=== PATIENT | female | born 1955 | race Caucasian/White ===

== ENCOUNTER 2017-07-14 06:06 | Inpatient (IN) | payer OTHER ==
--- NOTE | 2017-07-01 20:03 | HP ---
CONTINUATION ADDENDUM NOW INCLUDED ON THIS REPORT HISTORY AND PHYSICAL: DATE OF ADMISSION: 07/14/17 ATTENDING PROVIDER: Nathan Clinton MD * (DICTATED BY DENNISE ALVARADO) HISTORY OF PRESENT ILLNESS: Ms. Rosas is a 61-year-old female who has been seen previously for bilateral knee osteoarthritis. She has dealt with pain bilaterally in her knees for quite some time now. She has failed conservative measures, NSAIDs, physical therapy, and cortisone injections. She has been doing prehab in order to get herself ready for this knee replacement. PAST MEDICAL HISTORY: 1. Hypertension. 2. Diabetes. 3. Hypothyroidism. 4. Depression. PAST SURGICAL HISTORY: 1. Gallbladder removal in 1975. 2. Total hysterectomy. 3. Gastric bypass, 2004. 4. Total thyroidectomy, 2011. No known anesthesia problems during any of these. CURRENT MEDICATIONS: 1. Amlodipine 5 mg. 2. Bystolic 5 mg. 3. Paroxetine 30 mg. 4. Losartan and hydrochlorothiazide 180/25. 5. Levothyroxine 100 mcg. 6. Furosemide 40 mg. 7. Metformin 24-hour extended release 500 mg. 8. Atorvastatin 20 mg. 9. Minocycline 100 mg. 10. Multivitamin. 11. Zolpidem 10 mg. ALLERGIES: CODEINE causes upset stomach. SOCIAL HISTORY: The patient lives with her spouse. She does not smoke. She drinks alcohol 3 times a week, two 8-ounce glasses of wine. She denies any illicit drug use. REVIEW OF SYSTEMS: General: The patient denies fevers, chills, or night sweats. No known anesthesia problems. HEENT: The patient denies headaches, lightheadedness, or syncopal episodes. Cardiothoracic: Denies chest pain, heart palpitations, or edema. Denies any shortness of breath with exertion. Chronic cough, or COPD. GI: Denies any nausea, vomiting, constipation, or diarrhea. : Denies any nocturia, urinary frequency, or urgency. MSK: Admits to bilateral knee pain. Denies any neck pain or chronic low back pain. Neuro: Denies any paresthesias or numbness. Integumentary: Denies any abrasions, lesions, rashes, lumps, or open sores. PHYSICAL EXAMINATION GENERAL: The patient is alert and oriented x3 with appropriate mood and affect , appropriate dress and hygiene. The patient has resting or essential tremor at rest. HEENT: Normocephalic, atraumatic. Hearing and vision grossly intact. PULMONARY: Lungs are clear to auscultation bilaterally. No wheezes, rales, or rhonchi. CARDIO: Regular rate and rhythm. Normal S1 and S2. No appreciable S3 or S4. No murmurs, rubs, or gallops. MUSCULOSKELETAL: Left lower extremity, inspection of the left knee reveals no erythema, no ecchymosis. Skin is warm, dry, and intact. Extension to 0, flexion to 110. She has tenderness on the medial joint line. No tenderness on the lateral joint line. MCL and LCL are stable. Calf is soft and nontender. Negative anterior and posterior drawer test. Negative Osmany's. She is neurovascularly intact with a 2+ dorsalis pedis pulse. DIAGNOSTIC STUDIES: Imaging: X-rays acquired on 03/02/17 of the right CONTINUATION ADDENDUM: IMAGING: X-rays obtained on 03/02/17 were reviewed. Bilateral knees show severe osteoarthritic changes as evidenced by joint space narrowing and osteophyte formation in all compartments. ASSESSMENT: Left knee osteoarthritis. PLAN: The patient has elected for a left total knee replacement, which will be done on 07/14/[address] Nathan Clinton. The risks, benefits, and complications of surgery were reviewed with the patient. She understood these and signed her understanding of the surgical risks and complications. We spoke at length about recovery time and about the surgery in general and what it entail. She will follow up with preadmission testing today at 1 o'clock and she will follow up with her primary care provider on Thursday for further presurgical clearance. She will return to the office in 10 to 14 days postop for suture removal and reassessment. A prescription for oxycodone 5 mg will be prescribed to the pharmacy today along with a prescription for Zofran in order to counteract the upset stomach, the nausea that she should feel from codeine. DENNISE ALVARADO [id number]/[facility] #: [id number]/[facility] #: [id number] JOSE
--- NOTE | 2017-07-01 20:28 | HP ---
HISTORY AND PHYSICAL: ADDENDUM: IMAGING: X-rays obtained on 03/02/17 were reviewed. Bilateral knees show severe osteoarthritic changes as evidenced by joint space narrowing and osteophyte formation in all compartments. ASSESSMENT: Left knee osteoarthritis. PLAN: The patient has elected for a left total knee replacement, which will be done on 07/14/[address] Nathan Clinton. The risks, benefits, and complications of surgery were reviewed with the patient. She understood these and signed her understanding of the surgical risks and complications. We spoke at length about recovery time and about the surgery in general and what it entail. She will follow up with preadmission testing today at 1 o'clock and she will follow up with her primary care provider on Thursday for further presurgical clearance. She will return to the office in 10 to 14 days postop for suture removal and reassessment. A prescription for oxycodone 5 mg will be prescribed to the pharmacy today along with a prescription for Zofran in order to counteract the upset stomach, the nausea that she should feel from codeine. DENNISE ALVARADO [id number]/[facility] #: [id number] [facility]USD[facility]
[~2017-07-14 06:06] MED LIST: Buffered Lidocaine 0.9% SYRIN* 5 ML/SYR SYRINGE INTRADERM ONE; Famotidine IV* 10 MG/ML 2 ML (20 mg) IV ONE; Metoclopramide IV* 5 MG/ML 2 ML VIAL IV SLOW PU ONE; Sodium Citrate/Citric Acid* 15 ML UDC PO ONE
[2017-07-14] MEDS ORDERED: Famotidine IV* 10 MG/ML 2 ML (20 mg) ONE (06:10)
[2017-07-14] MEDS ORDERED: Metoclopramide IV* 5 MG/ML 2 ML VIAL ONE (06:10)
[2017-07-14] MEDS ORDERED: ceFAZolin 1 GM in Dextrose (*) 2 GM/100 ML BAG IVPB ONE (06:11)
[2017-07-14] MEDS ORDERED: Sodium Citrate/Citric Acid* 15 ML UDC ONE (06:11)
[2017-07-14] MEDS ORDERED: Lidocaine 2% PF * 5 ML VIAL ONE (06:57)
[2017-07-14] MEDS ORDERED: Midazolam* 1 MG/ML 2 ML VIAL (2 MG) ONE ×4 (06:57→10:20)
[2017-07-14] MEDS ORDERED: Propofol* 500 MG/50 ML BTL ONE ×3 (06:57→09:31)
[2017-07-14] MEDS ORDERED: Bupivacaine 0.5% SDV PF* 10-30ML VIAL ONE ×2 (06:57→07:23)
[2017-07-14] MEDS ORDERED: fentaNYL* 50 MCG/ML 2 ML VIAL (100 MCG VIAL) ONE (06:57)
[2017-07-14] MEDS ORDERED: Sterile Water for Inj* 10 ML ONE (08:15)
[2017-07-14] MEDS ORDERED: EPHEDrine (Pressors)* 50 MG/ML VIAL ONE (08:15)
[2017-07-14] MEDS ORDERED: Lidocaine 1% MPF wEPI 200,000* 30 ML SDV ONE (08:33)
[2017-07-14] MEDS ORDERED: EPHEDrine (Pressors)* 50 MG/ML VIAL IV PUSH PRN (09:07)
[2017-07-14] MEDS ORDERED: PROCHLORPERAZINE INJ 5 MG/ML 2 ML VIAL IV PRN (09:07)
[2017-07-14] MEDS ORDERED: diPHENhydraMINE IV* 50 MG/ML 1 ml VIAL (BENADRYL) IV PRN ×2 (09:07→09:10)
[2017-07-14] MEDS ORDERED: Ondansetron INJ* 2 MG/ML VIAL IV PRN ×2 (09:07→09:10)
[2017-07-14] MEDS ORDERED: oxyCODONE TAB* 5 MG TAB PO PRN ×2 (09:07→09:10)
[2017-07-14] MEDS ORDERED: Acetaminophen TAB* 325 MG PO PRN ×2 (09:07→09:10)
[2017-07-14] MEDS ORDERED: Naloxone* 0.4 MG/ML 1 ML VIAL IV PRN ×2 (09:07→09:10)
[2017-07-14] MEDS ORDERED: Nalbuphine* 20 MG/ML 1 ML VIAL IV PRN (09:10)
[2017-07-14] MEDS ORDERED: oxyCODONE/Acetamin 5/325 MG* TAB PO PRN (09:10)
[2017-07-14] MEDS ORDERED: fentaNYL* 50 MCG/ML 2 ML VIAL (100 MCG VIAL) IV PRN (09:10)
[2017-07-14] MEDS ORDERED: HYDROmorphone INJ* 1 MG/ML CARPUJECT SYRINGE IV PRN (09:10)
[2017-07-14] MEDS ORDERED: Scopolamine 1.5 mg* PATCH TRANSDERM SCH (10:00)
[2017-07-14] MEDS ORDERED: OBEPIDURAL* 250 ML EPIDURAL SCH (10:00)
[2017-07-14] MEDS ORDERED: Ketorolac INJ* 30 MG/ML 1 ML VIAL ONE (10:27)
[2017-07-14] MEDS ORDERED: Magnesium Hydroxide LIQ* 30 ML UDC PO PRN (11:04)
--- NOTE | 2017-07-14 12:23 | RAD ---
INDICATION: Status post total left knee replacement surgery. COMPARISON: Comparison is made with a prior x-ray study from November 29, 2014. TECHNIQUE: 2 views of the left knee were obtained. FINDINGS: The patient is status post total left knee replacement surgery. The bones and prostheses are in normal alignment. There are 2 surgical drains anterior to the distal femur. IMPRESSION: STATUS POST TOTAL LEFT KNEE REPLACEMENT SURGERY.
[2017-07-14] MEDS: ceFAZolin 1 GM in Dextrose (*) 1 GM/50 ML BAG IVPB SCH ×2 (16:04→23:44)
[2017-07-14] MEDS ORDERED: Dextrose 50% Syringe 50 ML* 25 GM/50 ML SYRINGE IV PUSH PRN (18:37)
--- NOTE | 2017-07-14 18:57 | OP ---
CC: Dr. Jaqueline Claire [place] * DATE OF OPERATION: 07/14/17 - ROOM #350 DATE OF : 55 - AGE: 61. SURGICAL CARE: Left knee. SURGEON: Nathan Clinton MD TISSUE SPECIALIST: DENNISE Caputo BERRY PICKER MACHINE OPERATOR: Alisa Link, hand frame surgical elastic knitter. ANESTHESIOLOGIST: Mily Tucker MD ANESTHESIA: Spinal and epidural IV sedation. PRE-OP DIAGNOSIS: Severe arthritis of the left knee with some varus malalignment. POST-OP DIAGNOSIS: Severe arthritis of the left knee with some varus malalignment. OPERATIVE PROCEDURE: Left total knee replacement. COMPONENTS UTILIZED: The Johny Persona Knee, the femur was a size 7, the patella size 35, the articular surface is size 10, and the tibia a size E. ESTIMATED BLOOD LOSS: 250 mL. FLUIDS: Replacement 2200 cc of crystalloid fluids. COMPLICATIONS: There were no complications. DRAINS: Two drains, left knee at the end of the case. CONDITION: Stable to the recovery room. OPERATIVE INDICATION: Severe arthritis of the left knee. It has been no longer responsive to nonoperative care and the patient wanted to proceed with a knee replacement and we recommended it. DESCRIPTION OF PROCEDURE: The patient was brought to the operating room and placed on the operating room table in a supine position. The spinal epidural was administered in the sitting position. She was then returned to the supine position. A Brandt catheter was inserted. The left proximal thigh was wrapped with a tourniquet. The left dorsalis pedis pulse was noted to be 2+ and the left leg was given a preliminary chlorhexidine prep and then a final ChloraPrep from the tourniquet to the tips of the toes. After prepping, draping, and carefully sealing off, we did our universal protocol time-out confirming Felix Rosas and a plan for left total knee replacement. We all agreed and we proceeded. The knee surgery was done with the knee acutely flexed and the left foot held on a padded foot piece and the tourniquet was not utilized until the clean up and cementing phase of the case. The skin incision went from two fingerbreadths proximal to the superior pole of the patella to the medial aspect of the tibial tubercle. Skin and subcutaneous tissues divided down to the deep fascia. The quad tendon of the vastus medialis identified and the knee was then entered medial parapatellar, dividing the quad tendon at the junction of the rectus femoris and vastus medialis tendon staying as close to vastus medialis muscle as possible, I am going 3 to 4 cm proximal to the superior pole of the patella. The knee had clear goldish synovial fluid. There was synovitis. The patella was made so that could be everted. The anteromedial soft tissues on the tibia were divided down to the bone along the tibial tubercle and then going medially, we elevated subperiosteally going around to the deep MCL and into the posteromedial corner of the knee. The remains of the medial meniscus were removed anteriorly and the MCL was carefully preserved throughout the case. The large osteophytes were present on the medial femoral condyle, medial tibial plateau, intercondylar notch of the patella. These were carefully removed. The intercondylar notch was cleaned and then the ACL and PCL were uplifted from their femoral origins. The tibia was made so it could be subluxated forward from under the femur and the PCL was carefully excised, keeping careful hemostasis posteriorly and working carefully there. The lateral meniscus was carefully excised. The distal anterior femur was exposed subperiosteally for referencing and measuring and peripatellar synovectomy was completed including the infrapatellar fat pad. Once these preparations were completed, then the proximal tibial cut was made first, our goal here was to have a tibial surface that would be perpendicular to the long axis of the tibia, removing a few millimeters from the medial side and and about a centimeter from the lateral side. After this cut was completed, then the femoral intramedullary canal was opened with a drill. The femoral canal was suctioned to discourage embolization. The distal femoral cutting guide was applied on #1 with 6 degrees of valgus and the distal femoral cut was completed. The extension gap was very satisfactory with a 10-mm block. The femur was then measured for a size 7 and the anterior, posterior, and chamfering cuts were completed for the size 7. We then finished removal of the medial meniscus, posterior medial femoral condyle where the were osteophytes same on the lateral femoral condyle, finished removal of the PCL in the lateral meniscus as well with careful hemostasis once again. At this stage, we had nice ligamentous balance in 90 degrees of flexion with a 10-mm block. The femur was completed with the intercondylar cutout. The tibia was then completed for a size E. The femoral canal was then cleaned x6 with pulse saline and suctioned empty and a bone plug was inserted. The knee was then assembled with trial components and positioned. The E tibia 10 articular surface and the size 7 femur with full knee extension, satisfactory alignment on extension, stable ligaments on extension, and stable ligaments in 90 degrees of flexion. The patella was cut flat, some extra cartilage was removed from the lateral facet, a 35 was chosen, three drill holes were made and these were undercut. A lateral release was not necessary. The knee was put through range of movement several times with a trial components in place from extension 0 degrees to flexion 125 degrees. The leg was exsanguinated. The tourniquet was elevated to 300. The knee was then cleaned and extension with pulsed saline irrigation several liters. The knee was then cleaned and flexed and was retractors in place. All bony surfaces were clean and then all bony surfaces were dry. The cement was mixed and the components were cemented into position, patella followed by tibia followed by femur. Each component was impacted, excess cement was removed, and the knee was articulated and extended during the final hardening. After hardening of the cement, we checked posteriorly for retained cement fragments. Tourniquet was deflated. Hemostasis checked and achieved utilizing electrocautery during closure. We infiltrated the pericapsular tissues with a mixture of Marcaine 0.5% without epinephrine and Xylocaine 1% with epinephrine 30 mL and then later in the closure we used another 15 mL in the joint and another 15 mL in the soft tissues from medially around the knee. The drains were brought out of the superolateral suprapatellar pouch. The closure was done on the quad tendon with interrupted #1 Vicryl sutures in [id number] fashion down to the medial retinaculum and distal to that we used 0 Vicryl and then on the deep fascia of bursa, we used 0 Vicryl and on the superficial subcu , we used 3-0 Vicryl non-dyed. The knee was flexed and extended several times during the closure. It was showing full extension and flexion to 130 degrees multiple times. Skin was closed with luis a and then washed and dried and covered with Betadine soaked release. The drains were dressed the same way and then sterile Webril followed by the cryotherapy cuff, ABD pads, and a loosely applied 6-inch Ronald bandage. The dorsalis pedis pulse was 2+ at the end of the case and the patient was returned to the recovery room in stable and satisfactory condition, having tolerated the procedure very well. [id number]/[facility] #: [id number] MTDD
[2017-07-14] MEDS: Docusate CAP* 100 MG PO SCH (20:47)
[2017-07-14] MEDS: Atorvastatin* 20 MG TAB PO SCH (20:47)
[2017-07-14] MEDS: oxyCODONE/Acetamin 5/325 MG* TAB PO PRN ×2 (20:48→23:54)
--- NOTE | 2017-07-14 21:18 | CONS ---
CC: Dr. Jaqueline Claire; Dr. Nathan Clinton * CONSULTATION REPORT: DATE OF CONSULT: 07/14/17 PRIMARY CARE PROVIDER: Dr. Jaqueline Claire. PHYSICIAN REQUESTING CONSULTATION: Dr. Nathan Clinton. ATTENDING PHYSICIAN: Dr. Brendon Hayden (dictated by Harleen Oliver NP) REASON FOR CONSULTATION: Co-medical management in a patient with a history of hypertension, diabetes mellitus, depression, hypothyroidism and sleep apnea. HISTORY OF PRESENT ILLNESS: Ms. Rosas is a 61-year-old female with a past medical history significant for hypertension, diabetes mellitus, hypothyroidism secondary to total thyroidectomy, depression, hyperlipidemia, sleep apnea who presented to the hospital today for an elective left total knee arthroplasty with Dr. Clinton. The patient states that leading up to her surgery, she has been in her usual state of health. She denies any recent fever, chills, chest pain, shortness of breath, nausea vomiting, diarrhea, or urinary symptoms. Postoperatively, the patient states that her pain is well controlled. Hospitalists were asked to assist with co-medical management of this patient during her hospitalization. PAST MEDICAL HISTORY: 1. Hypertension. 2. Diabetes mellitus. 3. Hypothyroidism. 4. Depression. 5. Hyperlipidemia. 6. Thyroid carcinoma, status post thyroidectomy and radiation. 7. Sleep apnea with CPAP. PAST SURGICAL HISTORY: 1. Status post cholecystectomy. 2. Status post total hysterectomy. 2. Status post Mario-en-Y gastric bypass. 3. Status post total thyroidectomy. HOME MEDICATIONS: Include: 1. Amlodipine 5 mg oral daily. 2. Bystolic 5 mg oral daily. 3. Paroxetine 30 mg oral daily. 4. Losartan/hydrochlorothiazide 100/25 one tablet oral daily. 5. Levothyroxine 100 mcg oral daily. 6. Furosemide 40 mg oral daily. 7. Metformin ER 1000 mg oral daily. 8. Atorvastatin 20 mg oral daily. 9. Minocycline 100 mg oral daily. 10. Multivitamin 1 tablet oral daily. 11. Ambien 10 mg oral daily at bedtime as needed for insomnia. 12. CoQ10 200 mg oral daily. 13. Vitamin B12 1000 mcg oral daily. 14. Albuterol 180 mcg 2 puffs inhalation every 4 to 6 hours as needed for shortness of breath or wheeze. ALLERGIES: CODEINE causes upset stomach. FAMILY HISTORY: The patient's father had a history of diabetes mellitus and cerebrovascular accident. The patient's mother has a history of diabetes mellitus, Alzheimer's disease and COPD. She denies any family history of cancer or heart disease. SOCIAL HISTORY: The patient denies tobacco use. She drinks alcohol approximately 3 times a week drinking two 8-ounce glasses of wine in a sitting. She lives with her . Her , Dominic Rosas, will be her surrogate decision maker in the event she is unable to make decisions for herself. REVIEW OF SYSTEMS: I performed an 11-point review of systems. All the pertinent positives and negatives are mentioned in the history of present illness. The remaining review of systems are negative. PHYSICAL EXAMINATION: Vital Signs: Temperature 98.0, heart rate 64, respiratory rate 16, O2 sat 100% on 2 L via nasal cannula, blood pressure 135/ 67. General Appearance: The patient is alert, pleasant, appears to be in no acute distress. HEENT: Normocephalic, atraumatic. Pupils are equal and reactive to light. Extraocular movements are intact. Respiratory: There is no accessory muscle use. Lungs are clear to auscultation bilaterally. Cardiovascular: Regular rate and rhythm. S1 and S2 are present and crisp. There are no murmurs, rubs or gallops heard. Abdomen: Soft, nontender, nondistended. There are bowel sounds present x4. Extremities: There is no lower extremity edema. DP and PT pulses are 2+ and symmetric. Musculoskeletal : There is no clubbing or cyanosis noted. The patient exhibits good strength in all extremities. Neurological: Cranial nerves II through XII are grossly intact. The patient moves all extremities. Psychological: The patient is calm and cooperative. Skin: The patient has a dressing to her left knee that is clean, dry and intact. DIAGNOSTIC STUDIES/LABORATORY DATA: Preop labs from 07/01/17: Sodium 141, potassium 3.9, chloride 102, CO2 31, BUN 12, creatinine 0.64. Glucose 124, white blood cell count 9.5, hemoglobin 12.2, hematocrit 36, platelet count 334. Urinalysis negative. IMPRESSION: Mr. Rosas is a 61-year-old female with past medical history significant for hypertension, diabetes mellitus, hypothyroidism, depression, hyperlipidemia and sleep apnea, who presented to the hospital today for an elective left total knee arthroplasty with Dr. Clinton. Hospitalists have been asked to assist with co-medical management of this patient during her hospitalization. ASSESSMENT: 1. Status post left total knee arthroplasty. Postop day, management will be per Orthopedic Surgery. The patient will have physical therapy and occupational therapy. We will trend her H and Hs, recheck a BMP in the morning. She will have urinary catheter in place through postop day 1. She will be placed on a bowel regime and pain management regimen. 2. Hypertension. We will continue the patient's Bystolic and amlodipine for now due to her having an epidural. I am going to hold her losartan/ hydrochlorothiazide and furosemide and resume accordingly as the blood pressures allow. 3. Diabetes mellitus. Hold the patient's home metformin. We will get glucose checks a.c. and h.s. and place her on lispro sliding scale. 4. Depression. Continue the patient's home paroxetine. 5. Hypothyroidism. The patient is status post a total thyroidectomy secondary to thyroid carcinoma. She will be continued on her home levothyroxine. 6. Hyperlipidemia. The patient will be continued on her home atorvastatin. 7. Fluids, electrolytes, and nutrition. The patient will be on a consistent carbohydrate diet after she is tolerating clear liquids. 8. DVT prophylaxis. The patient will be on full dose aspirin per Orthopedic Surgery. 9. Code status. Full code. 10. Disposition. Inpatient with disposition per Orthopedic Surgery. TIME SPENT: Time for this consultation was approximately 45 minutes, greater than half of that was spent with the patient discussing medications, past medical history, the events leading up to her arrival today, performing a physical examination. Reviewed by YASMANI GONZALEZ 07/15/17 1647 [id number]/[facility] #: [id number] JOSE
[2017-07-14] MEDS: Magnesium Hydroxide LIQ* 30 ML UDC PO SCH (22:03)
[2017-07-15] MEDS: oxyCODONE/Acetamin 5/325 MG* TAB PO PRN ×6 (02:48→22:14)
[2017-07-15] MEDS: Levothyroxine TAB* 100 MCG TAB PO SCH (05:33)
[2017-07-15 05:35] LABS: Hematocrit 28 % (35-47); Hemoglobin 9.6 g/dl (12.0-16.0); Mean Platelet Volume 9 um3 (7.4-10.4); Platelet Count 263 10^3/ul (150-450)
[2017-07-15 05:47] LABS: EGFR Non-African American 110.1 (>60)
--- NOTE | 2017-07-15 07:13 | PN ---
Progress Note - Progress Note Date of Service: 07/15/17 Note: POD #1 99.4, H/H 9.6/28%, Lytes OK, Post OP X-ray left knee all OK. Awake, alert, cooperative and breathing easily. Pain has been controlled with the epidural. Left knee dressing is dry. Exercises done for straight leg lift , hip IR and ER. The left DP pulse is 2 plus and foot is warm and without swelling. Imp: Stable. Acute blood loss anemia. Plans: Up with walker, drinking and incentive spirometry.
[2017-07-15] MEDS: Insulin LISPRO* 1 UNITS UNIT SUBCUT SCH ×3 (08:26→17:43)
[2017-07-15] MEDS: ceFAZolin 1 GM in Dextrose (*) 1 GM/50 ML BAG IVPB SCH (08:29)
[2017-07-15] MEDS ORDERED: Losartan TAB* 25 MG PO SCH (09:00)
[2017-07-15] MEDS ORDERED: Furosemide TAB* 40 MG PO SCH (09:00)
[2017-07-15] MEDS ORDERED: Hydrochlorothiazide TAB* 25 MG PO SCH (09:00)
[2017-07-15] MEDS: PARoxetine HCL TAB* 10 MG PO SCH (10:25)
[2017-07-15] MEDS: amLODIPine TAB* 5 MG PO SCH (10:27)
[2017-07-15] MEDS: CMCS Nebivolol TAB (NF) 2.5 MG TAB PO SCH (10:27)
[2017-07-15] MEDS: Docusate CAP* 100 MG PO SCH ×2 (10:28→21:38)
[2017-07-15] MEDS: Magnesium Hydroxide LIQ* 30 ML UDC PO SCH ×2 (10:29→21:38)
[2017-07-15] MEDS: MINOCYCLINE 50 MG PO SCH (10:29)
[2017-07-15] MEDS: Aspirin TAB* 325 MG PO SCH (10:29)
--- NOTE | 2017-07-15 11:14 | PN ---
Progress Note - Progress Note Date of Service: 07/15/17 SOAP: Subjective: []Patient seen at bedside POD 1 sp LTK. She feels well, denies excessive LLE pain. No dizziness, CP, SOB, nausea. Objective: [] Vital Signs Temp 98.7 F 07/15/17 09:18 Pulse 68 07/15/17 09:18 Resp 18 07/15/17 09:32 BP 135/63 07/15/17 09:18 Pulse Ox 100 07/15/17 09:18 Intake & Output 07/14/17 07/15/17 07/15/17 18:59 06:59 18:59 Intake Total 3819 2449 Output Total 1780 1670 Balance 2039 779 Intake: IV Fluids 2303 729 ABX - CEFAZOLIN 55 LR 2300 674 Obepidural 3 IVPB 386 ABX - CEFAZOLIN 57 LR 329 Oral 1130 1720 Output: Hemovac Amount #1 350 570 Brandt 1400 1100 Residual 30 Brandt 16 Fr 30 Other: # Bowel Movements 0 Laboratory Last Values Hgb 9.6 g/dl (12.0-16.0) L 07/15/17 05:13 Hct 28 % (35-47) L 07/15/17 05:13 Plt Count 263 10^3/ul (150-450) 07/15/17 05:13 MPV 9 um3 (7.4-10.4) 07/15/17 05:13 Sodium 136 mmol/L (133-145) 07/15/17 05:13 Potassium 3.7 mmol/L (3.5-5.0) 07/15/17 05:13 Chloride 102 mmol/L (101-111) 07/15/17 05:13 Carbon Dioxide 26 mmol/L (22-32) 07/15/17 05:13 Anion Gap 8 mmol/L (2-11) 07/15/17 05:13 BUN 8 mg/dL (6-24) 07/15/17 05:13 Creatinine 0.56 mg/dL (0.51-0.95) 07/15/17 05:13 Est GFR ( Amer) 141.5 (>60) 07/15/17 05:13 Est GFR (Non-Af Amer) 110.1 (>60) 07/15/17 05:13 BUN/Creatinine Ratio 14.3 (8-20) 07/15/17 05:13 Glucose 205 mg/dL (70-100) H 07/15/17 05:13 POC Glucose (mg/dL) 149 mg/dL (70-100) H 07/15/17 07:56 Calcium 8.4 mg/dL (8.6-10.3) L 07/15/17 05:13 General: Well appearing, NAD LLE: Drains pulled without complication and with tips intact, tolerated well by patient. DF/PF intact. Calf supple and nontender without erythema, edema or palpable cords Assessment: []POD 1 sp left total knee replacement Plan: []WBAT PT/OT ASA 325 mg QD DC tomorrow if progressing well
[2017-07-15] MEDS: Morphine INJ* 4 MG/ML 1 ML CARPUJECT IV PRN (12:22)
[2017-07-15] MEDS: Atorvastatin* 20 MG TAB PO SCH (17:44)
--- NOTE | 2017-07-15 18:28 | PN ---
Objective Active Medications: Amlodipine Besylate (Norvasc Tab*) 5 mg PO QAM [facility] Last Admin: 07/15/17 10:27 Dose: 5 mg Aspirin (Aspirin Tab*) 325 mg PO DAILY [facility] Last Admin: 07/15/17 10:29 Dose: 325 mg Atorvastatin Calcium (Lipitor*) 20 mg PO QPM [facility] Last Admin: 07/15/17 17:44 Dose: 20 mg Dextrose (D50w Syringe 50 Ml*) 12.5 gm IV PUSH .FOR FS < 60 - SS PRN PRN Reason: FS < 60 Docusate Sodium (Colace Cap*) 100 mg PO BID [facility] Last Admin: 07/15/17 10:28 Dose: 100 mg Lactated Ringer's (Lactated Ringers 1000 Ml Bag*) 1,000 mls @ 100 mls/hr IV PER RATE [facility] Last Admin: 07/15/17 00:14 Dose: 100 mls/hr Insulin Human Lispro (Humalog*) 0 - 10 units SUBCUT AC [facility] PRN Reason: Protocol Last Admin: 07/15/17 17:43 Dose: 2 unit Levothyroxine Sodium (Synthroid Tab*) 100 mcg PO 0600 [facility] Last Admin: 07/15/17 05:33 Dose: 100 mcg Magnesium Hydroxide (Milk Of Magnesia Liq*) 30 ml PO BID [facility] Last Admin: 07/15/17 10:29 Dose: 30 ml Magnesium Hydroxide (Milk Of Magnesia Liq*) 30 ml PO Q6H PRN PRN Reason: constipation Minocycline [facility] ([facility] (Nf)) [facility] [place] Last Admin: 07/15/17 10:29 Dose: 100 mg Morphine Sulfate (Morphine Inj (Syringe)*) 4 mg IV Q2H PRN PRN Reason: PAIN - BREAKTHROUGH Last Admin: 07/15/17 12:22 Dose: 4 mg Nebivolol (Bystolic Tab (Nf)) [facility] [place] Last Admin: 07/15/17 10:27 Dose: 5 mg Oxycodone/Acetaminophen (Percocet 5/325 Tab*) 2 tab PO Q4H PRN PRN Reason: PAIN Last Admin: 07/15/17 17:52 Dose: 2 tab Paroxetine HCl (Paxil Tab*) [facility] [place] Last Admin: 07/15/17 10:25 Dose: 30 mg Pharmacy Profile Note (Scopolamine Patch Remove*) 1 note PATCH OFF .AFTER 72 HOURS ONE Stop: 07/17/17 09:09 Scopolamine (Transderm-Scop 1.5 Mg Patch*) 1 patch TRANSDERM Q72H ERIK Last Admin: 07/14/17 13:24 Dose: Not Given Vital Signs - 8 hr 07/15/17 07/15/17 07/15/17 11:34 12:22 12:26 Temperature 100.1 F Pulse Rate 72 Respiratory 16 16 Rate Blood Pressure 145/58 (mmHg) O2 Sat by Pulse Oximetry 07/15/17 07/15/17 07/15/17 13:34 13:37 15:31 Temperature 98.7 F Pulse Rate 81 Respiratory 16 16 21 Rate Blood Pressure 149/52 (mmHg) O2 Sat by Pulse 91 Oximetry 07/15/17 07/15/17 17:26 17:52 Temperature Pulse Rate Respiratory 16 16 Rate Blood Pressure (mmHg) O2 Sat by Pulse Oximetry Oxygen Devices in Use Now: Nasal Cannula Result Diagrams: 07/15/17 05:13 07/15/17 05:13 Assess/Plan/Problems-Billing Assessment: - Patient Problems (1) Osteoarthritis of left knee Code(s): M17.12 - UNILATERAL PRIMARY OSTEOARTHRITIS, LEFT KNEE SNOMED Code(s) : 281280038383204 Comment: - POD1 LTKA - POC as per ortho, OOB with PT/OT, pain control, bowel regimen - DVT prophy with full dose ASA - H&H stable (2) Hypertension Code(s): I10 - ESSENTIAL (PRIMARY) HYPERTENSION SNOMED Code(s): 62409662 Comment: - Post op BP stable on home regimen, will continue. (3) Depression Code(s): F32.9 - MAJOR DEPRESSIVE DISORDER, SINGLE EPISODE, UNSPECIFIED SNOMED Code(s): 40699571 Comment: - continue SSRI (4) Diabetes Code(s): E11.9 - TYPE 2 DIABETES MELLITUS WITHOUT COMPLICATIONS SNOMED Code(s) : 78599116 Comment: - Lispro SS insulin coverage, sugars improving today (5) Hypothyroid Code(s): E03.9 - HYPOTHYROIDISM, UNSPECIFIED SNOMED Code(s): 27556208 Comment: - Continue synthroid daily Status and Disposition: Progressing. Remain inpatient per ortho.
[2017-07-16] MEDS: oxyCODONE/Acetamin 5/325 MG* TAB PO PRN ×3 (02:54→12:26)
[2017-07-16] MEDS: Morphine INJ* 4 MG/ML 1 ML CARPUJECT IV PRN (03:08)
[2017-07-16 05:33] LABS: Hematocrit 26 % (35-47); Hemoglobin 9.2 g/dl (12.0-16.0); Mean Platelet Volume 8 um3 (7.4-10.4); Platelet Count 241 10^3/ul (150-450)
[2017-07-16] MEDS: Levothyroxine TAB* 100 MCG TAB PO SCH (06:38)
[2017-07-16] MEDS: Aspirin TAB* 325 MG PO SCH (08:03)
[2017-07-16] MEDS: PARoxetine HCL TAB* 10 MG PO SCH (08:03)
[2017-07-16] MEDS: CMCS Nebivolol TAB (NF) 2.5 MG TAB PO SCH (08:04)
[2017-07-16] MEDS: amLODIPine TAB* 5 MG PO SCH (08:04)
[2017-07-16] MEDS: Docusate CAP* 100 MG PO SCH (08:04)
[2017-07-16] MEDS: MINOCYCLINE 50 MG PO SCH (08:05)
[2017-07-16] MEDS: Magnesium Hydroxide LIQ* 30 ML UDC PO SCH (08:05)
[2017-07-16] MEDS: Insulin LISPRO* 1 UNITS UNIT SUBCUT SCH ×2 (08:09→12:23)
[2017-07-16 12:04] VITALS: BP 140/59
--- NOTE | 2017-07-16 12:42 | PN ---
Progress Note - Progress Note Date of Service: 07/16/17 SOAP: Subjective: []Patient seen at bedside. LLE pain is well controlled. Denies chills, CP, SOB, nausea, leg numbness. She feels well for discharge home. Objective: []General: Well appearing, NAD LLE: Dressing was changed last night as it was saturated with blood posteriorly. Dressing was changed again this morning both instances with incision appearing CDI without surrounding erythema or discharge. This morning dressing was completely dry with no evidence of bleeding or discharge. Vital Signs Temp 98.7 F 07/16/17 11:27 Pulse 73 07/16/17 11:27 Resp 18 07/16/17 12:26 BP 140/59 07/16/17 11:27 Pulse Ox 97 07/16/17 11:27 Intake & Output 07/15/17 07/16/17 07/16/17 18:59 06:59 18:59 Intake Total 2348 670 230 Output Total 1000 1250 900 Balance 1348 -580 -670 Intake: IV Fluids 888 LR 888 IVPB 60 ABX - CEFAZOLIN 60 Oral 1400 670 230 Output: Urine 1000 1250 900 Other: # Bowel Movements 0 1 Estimated Stool Amount Medium Laboratory Last Values Hgb 9.2 g/dl (12.0-16.0) L 07/16/17 05:21 Hct 26 % (35-47) L 07/16/17 05:21 Plt Count 241 10^3/ul (150-450) 07/16/17 05:21 MPV 8 um3 (7.4-10.4) 07/16/17 05:21 Sodium 136 mmol/L (133-145) 07/15/17 05:13 Potassium 3.7 mmol/L (3.5-5.0) 07/15/17 05:13 Chloride 102 mmol/L (101-111) 07/15/17 05:13 Carbon Dioxide 26 mmol/L (22-32) 07/15/17 05:13 Anion Gap 8 mmol/L (2-11) 07/15/17 05:13 BUN 8 mg/dL (6-24) 07/15/17 05:13 Creatinine 0.56 mg/dL (0.51-0.95) 07/15/17 05:13 Est GFR ( Amer) 141.5 (>60) 07/15/17 05:13 Est GFR (Non-Af Amer) 110.1 (>60) 07/15/17 05:13 BUN/Creatinine Ratio 14.3 (8-20) 07/15/17 05:13 Glucose 205 mg/dL (70-100) H 07/15/17 05:13 POC Glucose (mg/dL) 189 mg/dL (70-100) H 07/16/17 11:56 Calcium 8.4 mg/dL (8.6-10.3) L 07/15/17 05:13 Assessment: []POD 2 sp left total knee arthroplasty Plan: []WBAT PT/OT ASA 325 mg QD DC home
[2017-07-17] MEDS ORDERED: Scopolamine PATCH Remove* 1 NOTE MISC PATCH OFF ONE (09:08)
--- NOTE | 2017-07-17 10:22 | DS ---
DISCHARGE SUMMARY: DATE OF ADMISSION/SURGERY: 07/14/17. DATE OF DISCHARGE: 07/16/17. PROVIDER: Dr. Nathan Clinton.* (DICTATED BY DENNISE LEONARD) OWNER: sonography technicianAlisa vigil. OPERATIVE PROCEDURE: Left total knee replacement. PREOP DIAGNOSIS: Severe arthritis of the left knee with some varus malalignment. POSTOP DIAGNOSIS: Severe arthritis of the left knee with some varus malalignment. HISTORY: Severe arthritis of the left knee. It has been no longer responsive to nonoperative care and the patient wanted to proceed with the knee replacement. HOSPITAL COURSE: The patient was admitted to [facility] on . She underwent a left total knee replacement without complications. She recovered briefly in the PACU and then brought to the short stay surgical unit in stable condition. On postop day 1, the patient was alert, cooperative, breathing easily, pain was well controlled. Knee dressing was dry. DP pulse was 2+ on the left. Foot was warm without swelling. She was also seen by the hospitalist on this date for management of medical comorbidities. On postop day 1, her drain was pulled with tips intact without complications. Later that night, her dressing was changed due to being soaked through with blood. Postop day 2, the patient was seen at bedside. She was well appearing, in no acute distress. Dressing was changed and incision was clean, dry and intact. The dressing was completely dry without any further bleeding. Dorsiflexion and plantarflexion were intact. Sensation intact distally. Dorsalis pedis pulse 2+ . Vitals: Temperature 98.7, pulse 73, respiratory rate 18, blood pressure 140/ 59, pulse 97. Hemoglobin 9.2, hematocrit 26. The patient was deemed to be medically and orthopedically stable for discharge home. DISCHARGE MEDICATIONS: 1. Atorvastatin 20 mg p.o. q.p.m. 2. Amlodipine 5 mg p.o. q.a.m. 3. Levothyroxine 100 mcg p.o. q.a.m. 4. Nebivolol 5 mg p.o. q.a.m. 5. Ambien 10 mg one tab p.o. q.p.m. p.r.n. 6. Co-Q10 one cap p.o. q.a.m. 7. Multivitamin one cap p.o. q.a.m. 8. Minocycline 100 mg p.o. q.a.m. 9. Paroxetine 30 mg p.o. q.a.m. 10. Metformin extended release 1000 mg p.o. q.a.m. 11. Losartan/hydrochlorothiazide 100/25 one tab p.o. q.a.m. 12. Furosemide 40 mg p.o. q.a.m. 13. Aspirin 325 mg p.o. daily for 30 days. 14. Docusate 100 mg p.o. b.i.d. p.r.n. 15. Percocet 5/325 one to two tabs p.o. every 4 to 6 hours p.r.n., max daily dose of 10. DISCHARGE PLAN: Weightbearing as tolerated. Okay to shower. Do not submerge the wound. Call orthopedic office with increased drainage, redness, increased pain or fever. Go to the emergency room with shortness of breath or chest pain. Regular diet. May use stool softeners as needed. Call the office if no bowel motion within 48 hours. Continue physical therapy and occupational therapy exercises. Visiting home nurses to remove the luis a in 10 to 12 days and do wound checks. Aspirin 325 daily for DVT prophylaxis. Pain control Percocet 5/325 one to two tabs every 4 to 6 hours as needed for pain, max daily dose of 10 tabs. Please note that Tylenol is a component of Percocet. Do not exceed 4000 mg of Tylenol daily from all sources. Follow up with Dr. Clinton in 4 to 6 weeks. Call for an appointment. DENNISE LEONARD [id number]/[facility] #: [id number] JOSE
== END 2017-07-16 13:50 | disposition home health service (06) | DRG 470 ==
LOC: AA 06:06 → SSU 11:04
PROVIDERS: ADMIT Orthopaedic Surgery; ATTEND Orthopaedic Surgery
PROC: 0SRD0J9 Replacement of Left Knee Joint with Synthetic Substitute, Cemented, Open Approach (ICD-10-PCS; principal; 2017-07-14 07:30)
DX: M17.0 Bilateral primary osteoarthritis of knee (principal); D62 Acute posthemorrhagic anemia; E11.9 Type 2 diabetes mellitus without complications; I10 Essential (primary) hypertension; M21.162 Varus deformity, not elsewhere classified, left knee; F32.9 Major depressive disorder, single episode, unspecified; E78.5 Hyperlipidemia, unspecified; G47.33 Obstructive sleep apnea (adult) (pediatric); M65.862 Other synovitis and tenosynovitis, left lower leg; M25.762 Osteophyte, left knee; E89.0 Postprocedural hypothyroidism; Z90.710 Acquired absence of both cervix and uterus; Z90.49 Acquired absence of other specified parts of digestive tract; Z88.6 Allergy status to analgesic agent; Z72.89 Other problems related to lifestyle; Z98.84 Bariatric surgery status; Z85.850 Personal history of malignant neoplasm of thyroid; Z92.3 Personal history of irradiation; Z82.5 Family history of asthma and other chronic lower respiratory diseases; Z82.3 Family history of stroke; Z83.3 Family history of diabetes mellitus; Z82.0 Family history of epilepsy and other diseases of the nervous system; Z79.84 Long term (current) use of oral hypoglycemic drugs; E03.9 Hypothyroidism, unspecified
CPT/HCPCS: 36415; 80048; 85014; 85018; 85049; 88305; 88311; A9270-GY; C1776; J0690; J1885; J2001; J2250; J2270; J2704; J2765; J3010

== ENCOUNTER 2018-07-17 09:43 | Emergency (ER) | payer OTHER ==
--- OUTSIDE RECORDS SUMMARY | 2018-07-17 09:52 | XMS REPORT | Continuity of Care Document ---
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 Payers Date Identification Numbers Payment Provider Subscriber Policy Number: [id number] Humzaadarsh Rosas PayID: [id number] [address] [place] [address] Advance Directives Description No Information Available Problems Date Description Provider Status Onset: 05/08/2014 Sleep apnea Jaqueline Claire MD Active Onset: 05/08/2014 Mixed hyperlipidemia Jaqueline Claire MD Active Onset: 07/29/2013 Cobalamin deficiency Jaqueline Claire MD Active Onset: 11/26/2012 Post-surgical malabsorption Jaqueline Claire MD Active Onset: 08/31/2012 Benign essential hypertension Jaqueline Claire MD Active Onset: 08/31/2012 Mild recurrent major depression Jaqueline Claire MD Active Onset: 08/31/2012 Postoperative hypothyroidism Jaqueline Claire MD Active Onset: 08/31/2012 Type 2 diabetes mellitus Jaqueline Claire MD Active Onset: 07/06/2018 Abnormal involuntary movement Jaqueline Claire MD Active Onset: 07/06/2018 Obesity Jaqueline Claire MD Active Onset: 08/31/2017 Insomnia Jaqueline Claire MD Active Onset: 05/08/2014 Vitamin B-complex deficiency Jaqueline Claire MD Inactive Inactive: 08/01/2014 Onset: 08/31/2012 Other specified arthropathy of multiple Jaqueline Claire MD Inactive sites Inactive: 08/01/2014 Onset: 08/31/2012 Malignant tumor of thyroid gland Jaqueline Claire MD Inactive Inactive: 08/01/2014 Family History Date Family Member(s) Observation Comments Father Diabetes, Adult Diabetes Mellitus, II. Father due to Stroke () - due to Stroke - (age 57 Years). Mother Diabetes, Adult Diabetes Mellitus, II. Mother due to Alzheimer's () - due to Disease Alzheimer's Disease; COPD - (age 65 Years). 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 [employer] Hand Dominance RIGHT-handed Abuse No history of abuse Hobbies Reading Hobbies Yardwork Tobacco Use Start: Unknown Patient has never smoked Smoking Status Reviewed: 07/06/18 Patient has never smoked Enjoy Exercising Enjoys Exercising Allergies, Adverse Reactions, Alerts Date Description Reaction Status Severity Comments 08/31/2012 Codeine GI Upset, Dizziness Active Medications Medication Date Status Form Strength Qnty SIG Indications Ordering Provider Metformin HCL 07/06/ Active Tablets 1000mg 180tab take one E11.9 2018 s tablet by MD Jaqueline mouth twice a day Escitalopram 01/08/ Active Tablets 20mg 90tabs 1 by mouth F33.0 [place] Oxalate 2017 every day MD Jaqueline Levothyroxine 08/31/ Active Tablets 112mcg 90tabs 1 by mouth E89.0 [place], Sodium 2017 every day MD Jaqueline Co Q10 Maximum 05/06/ Active Capsules 200mg 90caps 1 by mouth Anh Claire 2015 every day MD Jaqueline Bystolic 02/18/ Active Tablets 5mg 90tabs 1 by mouth [place] 2016 every day MD Jaqueline Furosemide 12/06/ Active Tablets 40mg 90tabs 1 by mouth R60.9 [place] 2016 every day MD Jaqueline in the morning Zolpidem 07/26/ Active Tablets 10mg 30tabs by mouth F51.02 Papi Claire 2015 every at MD Jaqueline bedtime as needed insomnia mdd 1 G47.00 Losartan 09/15/2014 Active Tablets 100-25mg 90tabs 1 by I10 Racquel Claire/Hydrochlorothiazide mouth MD Jaqueline daily Atorvastatin Calcium 05/08/2014 Active Tablets 20mg 90tabs 1 by E78. esme Claire 2 MD Jaqueline at bedtim e Amlodipine Besylate 11/03/2013 Active Tablets 5mg 90tabs 1 by I10 esme Claire MD every day Vitamin B-12 ER Active Tablets 1000mcg 1 po E53. Unknown ER qd 8 Clindamycin Phosphate Active Lotion 1% Apply Unknown to inner thighs , groin, and axilla twice a day as needed Clobetasol Propionate Active Ointment 0.05% apply Unknown to vulva twice daily for two weeks then once daily for two weeks Escitalopram Oxalate 12/15/2017 Hx Tablets 10mg 30tabs 1 by Harjinder Claire - mouth 0 MD Jaqueline 01/08/2018 every day Metformin HCL ER 06/02/2017 Hx Tablets 500mg 180tabs take E11. [place], - ER 24HR two 9 MD Jaqueline 07/06/2018 tabs by mouth every mornin g Proair HFA 04/15/2017 Hx Aerosol 108(90Bas 8.500gm 2 R05 B[place], - e) puffs Dread 07/06/2017 mcg/Act every DO 4-6 hours as needed for cough, sob, wheezi ng Azithromycin 04/11/2017 Hx Tablets 250mg 6tabs 2 by Amy Claire - mouth 9 MD Jaqueline 06/02/2017 today, then 1 by mouth daily x 4 more days Paroxetine HCL 02/25/2017 Hx Tablets 30mg 30tabs 1 by Harjinder Claire - mouth 0 MD Jaqueline 12/15/2017 daily Escitalopram Oxalate 02/13/2017 Hx Tablets 10mg 30tabs 1 by Harjinder Claire - mouth 0 MD Jaqueline 03/06/2017 every day Prednisone 02/03/2017 Hx Tablets 20mg 6tabs 2x/day J20. 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 [place], - mouth 9 MD Jaqueline 06/02/2017 twice a day Meloxicam 12/07/2015 Hx Tablets 15mg 30tabs 1 tab M12. [place], - by 9 MD Jaqueline 05/06/2016 mouth daily for pain for 1-2 weeks, then daily as needed for pain M12.9 Levaquin 08/15/2015 - Hx Tablets 500mg 7tabs 1 by mouth J18.9 Jaqueline Claire, 11/05/2015 every day x 7 MD days Celebrex 08/02/2015 - Hx Capsules 200mg 90caps 1 by mouth M12.9 Jaqueline Claire, 12/07/2015 every day as MD needed pain M12.9 Paroxetine HCL 05/10/2015 - Hx Tablets 40mg 90tabs 1 by mouth F33.0 [place], 02/13/2017 daily MD Jaqueline Levothyroxine 04/20/2015 - Hx Solution 100mcg 1units 1 by mouth E89.0 [place], Sodium 04/20/2015 Rec every day MD Jaqueline Levothyroxine 04/20/2015 - Hx Tablets 100mcg 90tabs 1 by mouth E89.0 [place], Sodium 11/05/2015 every day MD Jaqueline Levothyroxine 03/12/2015 - Hx Tablets 112mcg 60tabs take one E89.0 [place], Sodium 04/20/2015 tablet by MD Jaqueline mouth every day repeat tsh in 6 weeks Levothyroxine 01/26/2015 - Hx Tablets 125mcg 60tabs 1 by mouth 244.0 [place], Sodium 03/12/2015 every day - MD Jaqueline repeat labs in 6 weeks Levothyroxine 09/18/2014 - Hx Tablets 112mcg 60tabs 1 by mouth 244.0 [place], Sodium 01/26/2015 every day MD Jaqueline Levothyroxine 08/01/2014 - Hx Tablets 125mcg 60tabs 1 by mouth 244.0 [place], Sodium 09/18/2014 every day MD Jaqueline Metformin HCL ER 07/03/2014 - Hx Tablets ER 500mg 30tabs take 1 [place], 10/24/2014 24HR tablet by MD Jaqueline mouth every day with evening meal Levothyroxine 05/08/2014 - Hx Tablets 137mcg 30tabs 1 by mouth 244.0 [place] Sodium 08/01/2014 every day - MD Jaqueline check tsh in 6 weeks Vitamin D - Hx Capsules 400Uni qday Unknown 01/26/2015 t Ferrous - Hx Tablets 240(27 Unknown Gluconate 01/26/2015 Fe) mg Vitamin B-12 - Hx Tablets Sub 2500mc sublingual Unknown 10/24/2014 g Glumetza - Hx Tablets ER 500mg 30tabs take 1 [place], 07/03/2014 24HR tablet by MD Jaqueline mouth every day with evening meal Hyzaar - Hx Tablets 100-25 90tabs 1 by mouth [place] 09/15/2014 mg every day MD Jaqueline Vitamin D - Hx Tablets 1000Un 100tabs 1 po qd Unknown (Cholecalciferol 01/26/2015 it ) Naproxen - Hx Tablets 500mg 1 po bid Unknown 04/20/2015 with food prn pain Paroxetine HCL - Hx Tablets 30mg 30tabs 1 by mouth F33.0 [place] 05/10/2015 every day MD Jaqueline Bystolic - Hx Tablets 5mg 90tabs 1 by mouth I10 [place] 12/25/2015 every day MD Jaqueline Levothyroxine - Hx Tablets 112mcg 1 by mouth E89.0 Jaime Wilkins Sodium 05/06/2016 every day MD deepika Levothyroxine - Hx Solution 100mcg 1 by mouth E89.0 Unknown Sodium 08/31/2017 Rec every day Minocycline HCL - Hx Capsules 50mg 1 by mouth Unknown 12/15/2017 every day Immunizations CPT Code Status Date Vaccine Reaction Lot # [id number] Given 03/08/2018 Flu Vaccine NOS [id number] Given 07/06/2017 Pneumococcal 23 Immunization Pt tolerated well [id number] Adult Or Immunosuppressed Patient Q2039 Given 04/27/2017 Flu Vaccine NOS Q2039 Given 03/14/2016 Flu Vaccine NOS Q2039 Given 04/06/2015 Flu Vaccine NOS 54019 Given 02/11/2013 Afluria Or Fluvirin Flu Vac Intramuscular 99997 Given 08/31/2012 Tdap (Adacel) Ages 7 And Above Only [id number] Refused 04/05/2018 Shingrix (Shingles) Zoster Vaccine HZV, Recombinant , Subunit, Adj Vital Signs Date Vital Result Comment 07/06/2018 4:13pm Weight 243.00 lb Heart Rate 76 /min BP Systolic 128 mmHg BP Diastolic 78 mmHg Respiratory Rate 18 /min Height 66 inches 5'6" O2 % BldC Oximetry 96 % Ra BMI (Body Mass Index) 39.2 kg/m2 04/05/2018 3:57pm Weight 261.00 lb Height 66 inches 5'6" BMI (Body Mass Index) 42.1 kg/m2 12/15/2017 3:01pm Weight 261.00 lb Heart Rate 68 /min BP Systolic 130 mmHg BP Diastolic 72 mmHg Respiratory Rate 18 /min Height 66 inches 5'6" 08/31/17 BMI (Body Mass Index) 42.1 kg/m2 08/31/2017 4:07pm Weight 260.00 lb Heart Rate 76 /min BP Systolic 138 mmHg BP Diastolic 80 mmHg Respiratory Rate 18 /min Height 66 inches 5'6" 08/31/17 BMI (Body Mass Index) 42.0 kg/m2 08/18/2017 2:43pm Body Temperature 98.8 F Weight 258.00 lb Heart Rate 78 /min BP Systolic 124 mmHg BP Diastolic 80 mmHg Respiratory Rate 18 /min Height 66 inches 5'6" BMI (Body Mass Index) 41.6 kg/m2 07/06/2017 9:14am Weight 272.00 lb Heart Rate 86 /min BP Systolic 130 mmHg BP Diastolic 80 mmHg Respiratory Rate 18 /min Height 65.75 inches 5'5.75" 07/06/17 BMI (Body Mass Index) 44.2 kg/m2 06/02/2017 1:00pm Body Temperature 99.1 F tympanic Weight 263.00 lb Heart Rate 76 /min BP Systolic 130 mmHg BP Diastolic 80 mmHg Respiratory Rate 18 /min Height 65.75 inches 5'5.75" 08/05/16 O2 % BldC Oximetry 96 % On room air BMI (Body Mass Index) 42.8 kg/m2 04/15/2017 1:17pm Body Temperature 98.8 F Weight 261.00 lb Heart Rate 60 /min BP Systolic 128 mmHg BP Diastolic 68 mmHg Respiratory Rate 18 /min Height 65.75 inches 5'5.75" 08/05/16 O2 % BldC Oximetry 96 % BMI (Body Mass Index) 42.4 kg/m2 04/11/2017 10:46am Body Temperature 100.7 F tympanic Weight 264.00 lb Heart Rate 88 /min BP Systolic 142 mmHg BP Diastolic 20 mmHg Respiratory Rate 22 /min Height 65.75 inches 5'5.75" 08/05/16 O2 % BldC Oximetry 93 % On room air BMI (Body Mass Index) 42.9 kg/m2 03/06/2017 3:56pm Weight 269.00 lb Heart Rate 84 /min BP Systolic 122 mmHg BP Diastolic 70 mmHg Respiratory Rate 18 /min Height 65.75 inches 5'5.75" 08/05/16 BMI (Body Mass Index) 43.7 kg/m2 02/25/2017 9:46am Weight 265.00 lb Heart Rate 84 /min BP Systolic 140 mmHg BP Diastolic 80 mmHg Respiratory Rate 18 /min Height 65.75 inches 5'5.75" 08/05/16 BMI (Body Mass Index) 43.1 kg/m2 02/13/2017 4:05pm Weight 265.00 lb Heart Rate 76 /min BP Systolic 112 mmHg BP Diastolic 70 mmHg Respiratory Rate 18 /min Height 65.75 inches 5'5.75" 08/05/16 BMI (Body Mass Index) 43.1 kg/m2 02/03/2017 1:01pm Body Temperature 98.1 F Weight 265.00 lb Heart Rate 64 /min BP Systolic 132 mmHg BP Diastolic 78 mmHg Respiratory Rate 18 /min Height 65.75 inches 5'5.75" 08/05/16 O2 % BldC Oximetry 98 % BMI (Body Mass Index) 43.1 kg/m2 11/13/2016 3:51pm Weight 267.00 lb Heart Rate 68 /min BP Systolic 138 mmHg BP Diastolic 80 mmHg Respiratory Rate 18 /min Height 65.75 inches 5'5.75" 08/05/16 BMI (Body Mass Index) 43.4 kg/m2 08/05/2016 3:03pm Weight 277.00 lb Heart Rate 64 /min BP Systolic 148 mmHg BP Diastolic 80 mmHg BP Systolic Recheck 132 mmHg BP Diastolic Recheck 72 mmHg Respiratory Rate 18 /min Height 65.75 inches 5'5.75" 08/05/16 BMI (Body Mass Index) 45.0 kg/m2 05/06/2016 4:01pm Weight 269.00 lb Heart Rate 76 /min BP Systolic 130 mmHg BP Diastolic 70 mmHg Respiratory Rate 18 /min Height 65.75 inches 5'5.75" 05/06/16 BMI (Body Mass Index) 43.7 kg/m2 02/05/2016 4:06pm Weight 270.00 lb Heart Rate 80 /min BP Systolic 112 mmHg BP Diastolic 60 mmHg Respiratory Rate 18 /min Height 65.75 inches 5'5.75" BMI (Body Mass Index) 43.9 kg/m2 12/07/2015 3:47pm Weight 291.00 lb Heart Rate 64 /min BP Systolic 134 mmHg BP Diastolic 80 mmHg Respiratory Rate 20 /min Height 65.75 inches 5'5.75" O2 % BldC Oximetry 95 % BMI (Body Mass Index) 47.3 kg/m2 11/05/2015 3:06pm Weight 286.00 lb Heart Rate 76 /min BP Systolic 150 mmHg BP Diastolic 80 mmHg BP Systolic Recheck 122 mmHg BP Diastolic Recheck 70 mmHg Respiratory Rate 18 /min Height 65.75 inches 5'5.75" BMI (Body Mass Index) 46.5 kg/m2 08/15/2015 11:17am Body Temperature 98.9 F Weight 278.00 lb Heart Rate 92 /min BP Systolic 140 mmHg BP Diastolic 80 mmHg Respiratory Rate 22 /min Height 65.75 inches 5'5.75" O2 % BldC Oximetry 93 % BMI (Body Mass Index) 45.2 kg/m2 08/02/2015 4:16pm Weight 280.00 lb Heart Rate 80 /min BP Systolic 132 mmHg BP Diastolic 70 mmHg Respiratory Rate 18 /min Height 65.75 inches 5'5.75" BMI (Body Mass Index) 45.5 kg/m2 07/26/2015 4:05pm Weight 280.00 lb Heart Rate 68 /min BP Systolic 150 mmHg BP Diastolic 80 mmHg Respiratory Rate 20 /min Height 65.75 inches 5'5.75" BMI (Body Mass Index) 45.5 kg/m2 04/20/2015 3:22pm Weight 272.00 lb Heart Rate 76 /min BP Systolic 120 mmHg BP Diastolic 70 mmHg Respiratory Rate 18 /min Height 65.75 inches 5'5.75" BMI (Body Mass Index) 44.2 kg/m2 01/26/2015 4:08pm Weight 264.00 lb Heart Rate 76 /min BP Systolic 132 mmHg BP Diastolic 90 mmHg Respiratory Rate 18 /min Height 65.75 inches 5'5.75" BMI (Body Mass Index) 42.9 kg/m2 10/24/2014 3:52pm Weight 261.00 lb Heart Rate 60 /min BP Systolic 132 mmHg BP Diastolic 80 mmHg Respiratory Rate 18 /min Height 65.75 inches 5'5.75" BMI (Body Mass Index) 42.4 kg/m2 08/01/2014 8:14am Weight 260.00 lb Heart Rate 78 /min BP Systolic 110 mmHg BP Diastolic 80 mmHg Respiratory Rate 18 /min Height 65.75 inches 5'5.75" BMI (Body Mass Index) 42.3 kg/m2 05/08/2014 8:53am BP Systolic 140 mmHg BP Diastolic 80 mmHg 05/08/2014 8:53am Weight 248.00 lb Heart Rate 78 /min BP Systolic 150 mmHg BP Diastolic 100 mmHg Respiratory Rate 18 /min Height 66 inches 5'6" 02/07/2014 3:29pm Weight 258.00 lb Heart Rate 80 /min BP Systolic 140 mmHg BP Diastolic 80 mmHg Respiratory Rate 18 /min Height 66 inches 5'6" 11/03/2013 8:38am BP Systolic 112 mmHg BP Diastolic 70 mmHg 11/03/2013 8:38am Weight 256.00 lb Heart Rate 76 /min BP Systolic 142 mmHg BP Diastolic 70 mmHg Respiratory Rate 18 /min Height 66 inches 5'6" 07/29/2013 8:05am Weight 249.00 lb Heart Rate 80 /min BP Systolic 120 mmHg BP Diastolic 80 mmHg Respiratory Rate 20 /min Height 66 inches 5'6" 05/06/2013 8:07am BP Systolic 120 mmHg BP Diastolic 72 mmHg 05/06/2013 8:07am Weight 249.00 lb Heart Rate 88 /min BP Systolic 142 mmHg BP Diastolic 76 mmHg Respiratory Rate 18 /min Height 65.5 inches 5'5.50" Done On 08/31/12) 04/26/2013 2:35pm Body Temperature 99.4 F Weight 249.00 lb Heart Rate 84 /min BP Systolic 144 mmHg BP Diastolic 82 mmHg Respiratory Rate 20 /min Height 65.5 inches 5'5.50" Done On 08/31/12) O2 % BldC Oximetry 97 % 02/21/2013 9:35am Weight 258.00 lb Heart Rate 80 /min BP Systolic 138 mmHg BP Diastolic 74 mmHg Respiratory Rate 20 /min Height 65.5 inches 5'5.50" Done On 08/31/12) 02/11/2013 1:40pm Weight 257.00 lb Heart Rate 88 /min BP Systolic 124 mmHg BP Diastolic 64 mmHg Respiratory Rate 20 /min Height 65.5 inches 5'5.50" Done On 08/31/12) 11/26/2012 3:33pm Weight 260.00 lb Heart Rate 72 /min BP Systolic 130 mmHg BP Diastolic 70 mmHg Respiratory Rate 18 /min 09/22/2012 10:02am Weight 261.00 lb Heart Rate 80 /min BP Systolic 146 mmHg BP Diastolic 84 mmHg Respiratory Rate 18 /min Height 65.5 inches 5'5.50" (Done On 08/31/12) 09/15/2012 8:56am Weight 260.00 lb Heart Rate 76 /min BP Systolic 122 mmHg BP Diastolic 74 mmHg Respiratory Rate 20 /min Height 65.5 inches 5'5.50" (Done On 08/31/12) 09/10/2012 9:35am BP Systolic 118 mmHg BP Diastolic 80 mmHg 09/10/2012 9:35am Weight 260.00 lb Heart Rate 88 /min BP Systolic 146 mmHg BP Diastolic 90 mmHg Respiratory Rate 20 /min Height 65.5 inches 5'5.50" (Done On 08/31/12) 08/31/2012 2:02pm Weight 257.00 lb Heart Rate 72 /min BP Systolic 132 mmHg BP Diastolic 80 mmHg Respiratory Rate 20 /min Height 65.5 inches 5'5.50" Results Test Date Facility Test Result H/L Range Note Hemoglobin A1c 06/30/2018 [facility] Glycohemoglobin 13.1 % High 4.2-6.3 1, 2 (315)- - (A1c) eAG 329 mg/dL Basic (BMP) 06/30/2018 [facility] Glucose 285 mg/dL High 74-106 (315)- - BUN 8 mg/dL N 7-18 Creatinine 0.6 mg/dL N 0.6-1.3 Glom Filtration Rate, Estimate >60 mL/min >60 If >60 mL/min >60 3 BUN/Creat 13.3 ratio Sodium 137 mmol/L N 136-145 Potassium 3.6 mmol/L N 3.5-5.1 Chloride 101 mmol/L N 98-107 Carbon Dioxide 26 mmol/L N 21-32 Anion Gap 10 mEq/L N 8-16 Calcium 8.6 mg/dL N 8.5-10.1 Lipid Treatment 03/24/2018 [facility] Cholesterol 150 mg/dL 50-199 4 Triglycerides 240 mg/dL High 30-200 HDL 55 mg/dL 35-85 5 Chol/ HDL Ratio 2.7 ratio Low 3.7-5.6 VLDL 48 mg/dL High 2-29 LDL (Calc) 47 mg/dL 20-99 6 Alt 16 U/L 3-42 Ast 14 U/L 8-42 Laboratory test finding 03/24/2018 [facility] Vitamin B12 287 pg/mL 180- 914 CBC with Auto Diff-fcmg 03/24/2018 [facility] WBC 6.4 K/uL 4.1-11.0 RBC 3.68 M/uL Low 4.00-5.40 Hemoglobin 12.5 gm/dL 12.0-16.0 Hematocrit 36.5 % 36.0-47.0 MCV 99.4 fL High 80.0-97.0 MCH 34.0 pg High 27.0-32.0 MCHC 34.2 g/dL 32.0-36.0 RDW 13.1 % 11.5-14.5 PLT Count 290 K/ul 140-400 MPV 9.0 FL 7.1-10.7 Neutrophil 59.0 % 35.0-75.0 Lymphocyte 29.8 % 16.0-52.0 Monocyte 8.6 % 2.0-10.0 Eosinophil 1.7 % 0.0-5.0 Basophil 0.9 % 0.0-4.0 Abs Neutrophils 3.8 K/uL 2.1-8.0 Abs Lymphocytes 1.9 K/uL 0.8-5.5 Abs Monocytes 0.5 K/uL 0.1-1.0 Abs Eosinophils 0.1 K/uL 0.0-0.5 Abs Basophils 0.1 K/uL 0.0-0.3 Laboratory test finding 03/24/2018 [facility] TSH 1.42 uIU/mL 0.35-4.94 Basic ([facility]) 03/24/2018 [facility] Sodium 143 mmol/L 135-146 7 Potassium 4.1 mmol/L 3.5-5.2 Chloride# 103 mmol/L 97-110 8 Carbon Dioxide 29 mmol/L 24-34 Glucose 180 mg/dL High 70-105 BUN 11 mg/dL 6-26 Creatinine 0.6 mg/dL 0.5-1.4 Calcium 9.2 mg/dL 8.5-10.2 Non Jada Egfr >60 >60 9 Jada Egfr >60 >60 10 Anion Gap 11 mmol/L 5-15 11 Hemoglobin A1c 03/24/2018 [facility] Hemoglobin A1c 8.5 % High 4.1-5.9 Estimated Average Glucose Calc 197 mg/dL High 71-140 Basic ([facility]) 12/04/2017 [facility] Glucose 152 mg/dL High 74-106 12 (315)- - BUN 12 mg/dL N 7-18 Creatinine 0.6 mg/dL N 0.6-1.3 Glom Filtration Rate, Estimate >60 mL/min >60 If >60 mL/min >60 13 BUN/Creat 20.0 ratio Sodium 143 mmol/L N 136-145 Potassium 4.2 mmol/L N 3.5-5.1 Chloride 105 mmol/L N 98-107 Carbon Dioxide 29 mmol/L N 21-32 Anion Gap 9 mEq/L N 8-16 Calcium 8.6 mg/dL N 8.5-10.1 Hemoglobin A1c 12/04/2017 [facility] Glycohemoglobin (A1c ) 8.6 % High 4.2-6.3 14 (315)- - eAG 200 mg/dL CBC with Auto 12/04/2017 [facility] White Blood 8.2 K/uL N 3.1-10.7 Diff-fcmg (315)- - Count Red Blood Count 3.50 M/uL Low 3.90-5.40 Hemoglobin 11.5 gm/dL Low 11.6-15.8 Hematocrit 35.3 % Low 36.0-46.1 Mean Cell Volume 100.9 fl High 80.9-99.0 Mean Corpuscular HGB 32.9 pg High 25.9-32.7 Mean Corpuscular HGB Conc 32.6 g/dL N 30.8-34.3 Platelet Count 311 K/uL N 155-360 Red Cell Distri Width SD 49.7 fl High 3-47 Red Cell Distri Width %CV 14.0 % N 11.7-14.4 Mean Platelet Volume 10.7 fL N 8.9-12.4 Neut% 65.0 % N 40.4-72.8 Lymph % 24.7 % N 20.0-42.0 Hendricks % 8.7 % N 4.3-13.2 Eo% 1.2 % N 0.0-6.6 Bas% 0.4 % N 0.0-1.1 Neut# 5.30 K/uL N 1.8-7.0 Lymph # 2.01 K/uL N 1.0-4.0 Hendricks # 0.71 K/uL N 0.3-0.9 Eos # 0.10 K/uL N 0.0-0.5 Baso # 0.03 K/uL N 0.0-0.1 Laboratory test finding 10/12/2017 [facility] TSH 1.61 uIU/mL 0.35-4.94 15 Lipid Treatment 08/20/2017 [facility] Cholesterol 115 mg/dL 50-199 16 Triglycerides 148 mg/dL 30-200 HDL 53 mg/dL 35-85 17 Chol/ HDL Ratio 2.2 ratio Low 3.7-5.6 VLDL 30 mg/dL High 2-29 LDL (Calc) 33 mg/dL 20-99 18 Alt 24 U/L 3-42 Ast 31 U/L 8-42 CBC With Auto Diff 08/20/2017 [facility] WBC 7.5 K/uL 4.1-11.0 RBC 3.34 M/uL Low 4.00-5.40 Hemoglobin 10.9 gm/dL Low 12.0-16.0 Hematocrit 32.8 % Low 36.0-47.0 MCV 98.2 fL High 80.0-97.0 MCH 32.6 pg High 27.0-32.0 MCHC 33.2 g/dL 32.0-36.0 RDW 13.6 % 11.5-14.5 PLT Count 398 K/ul 140-400 MPV 8.2 FL 7.1-10.7 Neutrophil 65.4 % 35.0-75.0 Lymphocyte 23.6 % 16.0-52.0 Monocyte 8.5 % 2.0-10.0 Eosinophil 1.7 % 0.0-5.0 Basophil 0.8 % 0.0-4.0 Abs Neutrophils 4.9 K/uL 2.1-8.0 Abs Lymphocytes 1.8 K/uL 0.8-5.5 Abs Monocytes 0.6 K/uL 0.1-1.0 Abs Eosinophils 0.1 K/uL 0.0-0.5 Abs Basophils 0.1 K/uL 0.0-0.3 Laboratory test finding 08/20/2017 [facility] TSH 8.32 uIU/mL High 0.35- 4.94 Basic (BMP) 08/20/2017 [facility] Sodium 142 mmol/L 135-146 19 Potassium 3.9 mmol/L 3.5-5.2 Chloride# 103 mmol/L 97-110 20 Carbon Dioxide 29 mmol/L 24-34 Glucose 132 mg/dL High 70-105 BUN 9 mg/dL 6-26 Creatinine 0.7 mg/dL 0.5-1.4 Calcium 8.9 mg/dL 8.5-10.2 Non Jada Egfr >60 >60 21 Jada Egfr >60 >60 22 Anion Gap 10 mmol/L 5-15 23 Hemoglobin A1c 08/20/2017 [facility] Hemoglobin A1c 6.8 % High 4.1-5.9 Estimated Average Glucose Calc 148 mg/dL High 71-140 CBC With Auto Diff 08/18/2017 [facility] WBC 10.9 K/uL 4.1-11.0 24 RBC 3.35 M/uL Low 4.00-5.40 Hemoglobin 11.1 gm/dL Low 12.0-16.0 Hematocrit 32.7 % Low 36.0-47.0 MCV 97.4 fL High 80.0-97.0 MCH 33.0 pg High 27.0-32.0 MCHC 33.9 g/dL 32.0-36.0 RDW 13.3 % 11.5-14.5 PLT Count 437 K/ul High 140-400 MPV 8.1 FL 7.1-10.7 Neutrophil 77.6 % High 35.0-75.0 Lymphocyte 14.2 % Low 16.0-52.0 Monocyte 6.6 % 2.0-10.0 Eosinophil 0.9 % 0.0-5.0 Basophil 0.7 % 0.0-4.0 Abs Neutrophils 8.5 K/uL High 2.1-8.0 Abs Lymphocytes 1.6 K/uL 0.8-5.5 Abs Monocytes 0.7 K/uL 0.1-1.0 Abs Eosinophils 0.1 K/uL 0.0-0.5 Abs Basophils 0.1 K/uL 0.0-0.3 Basic (BMP) [facility]/18/[facility] Sodium 142 mmol/L 135-146 25 Potassium 4.1 mmol/L 3.5-5.2 Chloride# 102 mmol/L 97-110 26 Carbon Dioxide 30 mmol/L 24-34 Glucose 99 mg/dL 70-105 BUN 8 mg/dL 6-26 Creatinine 0.6 mg/dL 0.5-1.4 Calcium 9.1 mg/dL 8.5-10.2 Non Jada Egfr >60 >60 27 Jada Egfr >60 >60 28 Anion Gap 10 mmol/L 5-15 29 CBC 08/05/2017 [facility] White Blood Count 8.9 K/uL N 3.1-10.7 30 (315)- - Red Blood Count 2.82 M/uL Low 3.90-5.40 Hemoglobin 9.3 gm/dL Low 11.6-15.8 Hematocrit 29.0 % Low 36.0-46.1 Mean Cell Volume 102.8 fl High 80.9-99.0 Mean Corpuscular HGB 33.0 pg High 25.9-32.7 Mean Corpuscular HGB Conc 32.1 g/dL N 30.8-34.3 Platelet Count 413 K/uL High 155-360 Red Cell Distri Width %CV 13.0 % N 11.7-14.4 Mean Platelet Volume 9.3 fL N 8.9-12.4 Basic Metabolic Panel 08/05/2017 [facility] Glucose 131 mg/dL High 74-106 (315)- - BUN 9 mg/dL N 7-18 Creatinine 0.5 mg/dL Low 0.6-1.3 Glom Filtration Rate, Estimate >60 mL/min >60 If >60 mL/min >60 31 BUN/Creat 18.0 ratio Sodium 141 mmol/L N 136-145 Potassium 4.0 mmol/L 3.5-5.1 Chloride 106 mmol/L N 98-107 Carbon Dioxide 28 mmol/L N 21-32 Anion Gap 7 mEq/L Low 8-16 Calcium 8.5 mg/dL N 8.5-10.1 Basic Metabolic Panel 08/04/2017 [facility] Glucose 138 mg/dL High 74-106 (315)- - BUN 11 mg/dL N 7-18 Creatinine 0.6 mg/dL N 0.6-1.3 Glom Filtration Rate, Estimate >60 mL/min >60 If >60 mL/min >60 32 BUN/Creat 18.3 ratio Sodium 138 mmol/L N 136-145 Potassium 3.3 mmol/L Low 3.5-5.1 Chloride 102 mmol/L N 98-107 Carbon Dioxide 29 mmol/L N 21-32 Anion Gap 7 mEq/L Low 8-16 Calcium 8.6 mg/dL N 8.5-10.1 CBC 08/04/2017 [facility] White Blood Count 14.3 K/uL High 3.1-10.7 (315)- - Red Blood Count 3.11 M/uL Low 3.90-5.40 Hemoglobin 10.3 gm/dL Low 11.6-15.8 Hematocrit 31.5 % Low 36.0-46.1 Mean Cell Volume 101.3 fl High 80.9-99.0 Mean Corpuscular HGB 33.1 pg High 25.9-32.7 Mean Corpuscular HGB Conc 32.7 g/dL N 30.8-34.3 Platelet Count 480 K/uL High 155-360 Red Cell Distri Width %CV 13.0 % N 11.7-14.4 Mean Platelet Volume 9.6 fL N 8.9-12.4 Glycohemoglobin A1c 08/04/2017 [facility] Glycohemoglobin 7.2 % High 4.2-6.3 33 (315)- - (A1c) eAG 160 mg/dL Urine Culture 08/03/2017 [facility] Urine Culture URETHRAL LEVON (315)- - Quantity 10,000 - 50,000 <SEE NOTE> 34 Ua RFX Micro & 08/03/2017 [facility] Urine Color YELLOW Yellow 35 Culture II (315)- - Urine Clarity CLEAR Clear Urine Glucose - Dipstick NEGATIVE mg/dL Negative Urine Bilirubin - Dipstick NEGATIVE Negative Urine Ketone NEGATIVE mg/dL Negative Urine Specific Arnett 1.015 N 1.010-1.030 Urine Blood NEGATIVE Negative Urine PH 6.0 Low 6.5-7.5 Urine Protein - Dipstick NEGATIVE mg/dL Negative Urine Urobilinogen - Dipstick 0.2 E.U./dL N 0.2-1.0 Urine Nitrite - Dipstick NEGATIVE Negative Urine Leuk Esterase SMALL Abnormal Negative Source: URINE, CLEAN CAT <SEE NOTE> 36 Urinalysis With 08/03/2017 [facility] Urine Color YELLOW Yellow Microscopic (315)- - Urine Clarity CLEAR Clear Urine Glucose - Dipstick NEGATIVE mg/dL Negative Urine Bilirubin - Dipstick NEGATIVE Negative Urine Ketone NEGATIVE mg/dL Negative Urine Specific Arnett 1.015 N 1.010-1.030 Urine Blood NEGATIVE Negative Urine PH 5.5 Low 6.5-7.5 Urine Protein - Dipstick NEGATIVE mg/dL Negative Urine Urobilinogen - Dipstick 0.2 E.U./dL N 0.2-1.0 Urine Nitrite - Dipstick NEGATIVE Negative Urine Leuk Esterase SMALL Abnormal Negative Urine RBC NONE SEEN rbc/hpf 0-2 Urine WBC 5-10 wbc/hpf 0-7 Urine Epithelial Cells MODERATE /lpf None Seen 37 Urine Bacteria FEW None Seen Source: URINE, CLEAN CAT <SEE NOTE> 38 Lactic Acid 08/03/2017 [facility] Lactic Acid 1.6 mmol/L N 0.4-1.9 39 (315)- - Lab Reflex >2.0 for Sepsis? Y Basic (BMP) 05/18/2017 [facility] Sodium 142 mmol/L 135-146 40, 41 Potassium 3.7 mmol/L 3.5-5.2 Chloride# 102 mmol/L 97-110 42 Carbon Dioxide 29 mmol/L 24-34 Glucose 157 mg/dL High 70-105 Creatinine 0.5 mg/dL 0.5-1.4 Calcium 9.3 mg/dL 8.5-10.2 Non Jada Egfr >60 >60 43 Jada Egfr >60 >60 44 Anion Gap 11 mmol/L 7-16 45 BUN 11 mg/dL 6-26 [facility] 7.8 % High 4.1-5.9 Estimated Average Glucose Calc 177 mg/dL High 71-140 Lipid Treatment 01/26/2017 [facility] Cholesterol 167 mg/dL 50-199 Triglycerides 194 mg/dL 30-200 HDL 72 mg/dL 35-85 46 Chol/ HDL Ratio 2.3 ratio Low 3.7-5.6 VLDL 39 mg/dL High 2-29 LDL (Calc) 56 mg/dL 20-99 47 Alt 21 U/L 3-42 Ast 16 U/L 8-42 Basic (BMP) 01/26/2017 [facility] Sodium 142 mmol/L 135-146 48 Potassium 4.3 mmol/L 3.5-5.2 Chloride# 98 mmol/L 97-110 49 Carbon Dioxide 31 mmol/L 24-34 Glucose 133 mg/dL High 70-105 BUN 20 mg/dL 6-26 Creatinine 0.7 mg/dL 0.5-1.4 Calcium 9.7 mg/dL 8.5-10.2 Non Jada Egfr >60 >60 50 Jada Egfr >60 >60 51 Anion Gap 13 mmol/L 7-16 52 [facility] A1[facility] 7.2 % High 4.1-5.9 Estimated Average Glucose Calc 160 High 71-140 Laboratory test 11/10/2016 [facility] Thyroid Stim 2.06 uIU/mL N 0.30-4.20 53 finding (315)- - Hormone Free T4 0.85 ng/dL N 0.76-1.46 Laboratory test 11/10/2016 [facility] Vitamin B12 1529 High 193-986 finding (315)- - pg/mL Hemoglobin A1c 11/10/2016 [facility] Glycohemoglobin 7.4 % High 4.2-6.3 54 (315)- - (A1c) eAG 166 mg/dL Comprehensive Metabolic 11/10/[address] [facility] Glucose 118 mg/dL High 74-106 (CMP) (315)- - BUN 13 mg/dL N 7-18 Creatinine 0.7 mg/dL N 0.6-1.3 Glom Filtration Rate, Estimate >60 mL/min >60 If >60 mL/min >60 55 BUN/Creat 18.5 ratio Sodium 142 mmol/L N 136-145 Potassium 3.7 mmol/L N 3.5-5.1 Chloride 104 mmol/L N 98-107 Carbon Dioxide 29 mmol/L N 21-32 Anion Gap 9 mEq/L N 8-16 Calcium 8.6 mg/dL N 8.5-10.1 Total Protein 7.2 g/dL N 6.4-8.2 Albumin 3.4 g/dL N 3.4-5.0 Globulin 3.8 g/dL N 1.9-4.3 Alb/Glob 0.9 ratio Bilirubin,Total 0.4 mg/dL N 0.2-1.0 Sgot/Ast 23 U/L N 15-37 SGPT/Alt 28 U/L N 12-78 Alkaline Phosphatase 143 U/L High 45-117 Laboratory test finding 08/05/2016 [facility] TSH 1.73 uIU/mL 0.35-4.94 56 Hepatitis C Virus Antibody NONREACTIVE Nonreactive Microalb/Creat Panel 08/05/2016 [facility] Creatinine, Urine 199.0 mg/dL Microalb/Creat Urine 4.22 ug/mgCreat 0.00-30.00 Microalbumin 8.4 ug/ml 0.0-20.0 Laboratory test finding 07/29/2016 [facility] Hemoglobin A1c 7.8 % High 4.1- 5.9 57 Basic (BMP) 07/29/2016 [facility] Sodium 142 mmol/L 134-142 Potassium 4.8 mmol/L 3.5-5.2 Chloride 100 mmol/L 97-109 Carbon Dioxide 32 mmol/L 24-34 Glucose 149 mg/dL High 70-105 BUN 14 mg/dL 6-26 Creatinine 0.7 mg/dL 0.5-1.4 Calcium 9.5 mg/dL 8.5-10.2 Anion Gap 15 mmol/L High 6-14 Non Jada Egfr >60 >60 58 Jada Egfr >60 >60 59 Lipid Treatment 07/29/2016 [facility] Cholesterol 174 mg/dL 50-199 Triglycerides 182 mg/dL 30-200 HDL 63 mg/dL 35-85 60 Chol/ HDL Ratio 2.8 ratio Low 3.7-5.6 VLDL 36 mg/dL High 2-29 LDL (Calc) 75 mg/dL 20-99 61 Alt 22 U/L 3-42 Ast 17 U/L 8-42 Basic (BMP) 04/28/2016 [facility] Sodium 138 mmol/L 134-142 62 Potassium 3.8 mmol/L 3.5-5.2 Chloride 98 mmol/L 97-109 Carbon Dioxide 29 mmol/L 24-34 Glucose 140 mg/dL High 70-105 BUN 13 mg/dL 6-26 Creatinine 0.6 mg/dL 0.5-1.4 Calcium 9.2 mg/dL 8.5-10.2 Anion Gap 15 mmol/L High 6-14 Non Jada Egfr >60 >60 63 Jada Egfr >60 >60 64 Laboratory test 04/28/2016 [facility] Hemoglobin A1c 7.2 % High 4.1-5.9 finding Laboratory test 03/10/2016 [facility] Thyroid Stim 0.25 Low 0.30-4.20 65 finding (315)- - Hormone uIU/mL Free T4 0.88 ng/dL N 0.76-1.46 Thyroglobulin QT 03/10/2016 [facility] Thyroglobulin < 1.0 N 0.0-0.9 66 And Thyro AB (315)- - Antibody IU/mL Thyroglobulin By Darby < 0.1 ng/mL Low 1.5-38.5 67 Basic (BMP) 01/29/2016 [facility] Sodium 140 mmol/L 134-142 68 Potassium 3.7 mmol/L 3.5-5.2 Chloride 101 mmol/L 97-109 Carbon Dioxide 32 mmol/L 24-34 Glucose 149 mg/dL High 70-105 BUN 10 mg/dL 6-26 Creatinine 0.7 mg/dL 0.5-1.4 Calcium 9.1 mg/dL 8.5-10.2 Anion Gap 11 mmol/L 6-14 Non Jada Egfr >60 >60 69 Jada Egfr >60 >60 70 Laboratory test finding 01/29/2016 [facility] Vitamin B12 984 pg/mL High 180 -914 Vit D,25 Hydroxy 45 ng/mL 31-100 Hemoglobin A1c 7.0 % High 4.1-5.9 Lipid Treatment 01/29/2016 [facility] Cholesterol 130 mg/dL 50-199 Triglycerides 166 mg/dL 30-200 HDL 49 mg/dL 35-85 71 Chol/ HDL Ratio 2.7 ratio Low 3.7-5.6 VLDL 33 mg/dL High 2-29 LDL (Calc) 48 mg/dL 20-99 72 Alt 16 U/L 3-42 Ast 17 U/L 8-42 Laboratory test 11/01/2015 [facility] Vitamin B12 1772 pg /mL High 193-986 73 finding (315)- - CBC With Auto 11/01/2015 [facility] White Blood 8.0 K/uL 3.1-10.7 Diff (315)- - Count Red Blood Count 3.52 M/uL Low 3.90-5.40 Hemoglobin 12.0 gm/dL 11.6-15.8 Hematocrit 36.1 % 36.0-46.1 Mean Cell Volume 102.6 fl High 80.9-99.0 Mean Corpuscular HGB 34.1 pg High 25.9-32.7 Mean Corpuscular HGB Conc 33.2 g/dL 30.8-34.3 Platelet Count 324 K/uL 155-360 Red Cell Distri Width SD 46.7 fl 3-47 Red Cell Distri Width %CV 12.8 % 11.7-14.4 Mean Platelet Volume 11.1 fL 8.9-12.4 Neut% 66.3 % 40.4-72.8 Lymph % 24.6 % 17.0-46.1 Hendricks % 7.3 % 4.3-13.2 Eo% 1.3 % 0.0-6.6 Bas% 0.5 % 0.0-1.1 Neut# 5.28 K/uL 1.8-7.0 Lymph # 1.96 K/uL 1.8-7.0 Hendricks # 0.58 K/uL 0.3-0.9 Eos # 0.10 K/uL 0.0-0.5 Baso # 0.04 K/uL 0.0-0.1 Laboratory test 11/01/2015 [facility] Thyroid Stim 2.31 uIU/mL 0.30-4.20 finding (315)- - Hormone BMP (Basic) 11/01/[address] [facility] Basic Metabolic (SEE NOTE) 74 (315)- - Panel Glucose 147 mg/dL High 74-106 BUN 11 mg/dL 7-18 Creatinine 0.7 mg/dL 0.6-1.3 Glom Filtration Rate, Estimate >60 mL/min >60 If >60 mL/min >60 75 BUN/Creat 15.7 ratio Sodium 139 mmol/L 136-145 Potassium 3.6 mmol/L 3.5-5.1 Chloride 103 mmol/L 98-107 Carbon Dioxide 27 mmol/L 21-32 Anion Gap 9 mEq/L 8-16 Calcium 8.7 mg/dL 8.5-10.1 Glycohemoglobin A1c 11/01/2015 [facility] Glycohemoglobin 6.8 % High 4.2-6.3 76 (315)- - (A1c) eAG 148 mg/dL Laboratory test 11/01/2015 [facility] Vitamin 43.1 ng/mL 30.0-100.0 77 finding (315)- - D,25-Hydroxy Sedimentation Rate 34 mm/hr High 0-30 Alkaline Phosphatase 141 U/L High 45-117 Laboratory test finding 07/27/2015 [facility] CRP (C-Reactive) 0.09 mg/dL 0.00-0.75 Magy Screen Neg Neg Esr 33 mm/hr High 0-20 Rheumatoid Factor <10.0 IU/mL 0.0-10.0 Laboratory test 07/27/2015 [facility] CCP Antibody Igg 6 78 finding Microalb/Creat 07/11/[address] [facility] Microalbumin,Uri 8.6 mg/L < 20.0 Ratio,Random Ur (315)- - ne Microalbumin/Creatinine Ratio 13.0 ug/mgCrt < 30.0 Urine Creatinine Conc 66 mg/dL Glycohemoglobin A1c 07/11/[address] [facility] Glycohemoglobin 7.1 % High 4.2-6.3 79 (315)- - (A1c) eAG 157 mg/dL BMP (Basic) 07/11/[address] [facility] Basic Metabolic Panel ( SEE NOTE) 80 (315)- - Glucose 152 mg/dL High 74-106 BUN 9 mg/dL 7-18 Creatinine 0.7 mg/dL 0.6-1.3 Glom Filtration Rate, Estimate >60 mL/min >60 If >60 mL/min >60 81 BUN/Creat 12.8 ratio Sodium 139 mmol/L 136-145 Potassium 3.5 mmol/L 3.5-5.1 Chloride 103 mmol/L 98-107 Carbon Dioxide 28 mmol/L 21-32 Anion Gap 8 mEq/L 8-16 Calcium 8.0 mg/dL Low 8.5-10.1 LDL Cholesterol 07/11/2015 [facility] Cholesterol 129 mg/ dL <200 82 Profile (315)- - Triglycerides 121 mg/dL <150 83 HDL Cholesterol 65 mg/dL >40 84 LDL-Cholesterol 40 mg/dL < 100 85 Liver Function 07/11/2015 [facility] Total Protein 7.3 g/ dL 6.4-8.2 Tests (315)- - Albumin 3.6 g/dL 3.4-5.0 Globulin 3.7 g/dL 1.9-4.3 Alb/Glob 1.0 ratio Bilirubin,Total 0.6 mg/dL 0.2-1.0 Bilirubin,Direct 0.2 mg/dL 0.0-0.2 Bilirubin,Indirect 0.4 mg/dL 0.0-0.9 Sgot/Ast 14 U/L Low 15-37 86 SGPT/Alt 26 U/L 12-78 Alkaline Phosphatase 162 U/L High 45-117 Laboratory test 05/04/2015 [facility] TSH 1.68 uIU/mL 0.35-4.94 87 finding BMP (Basic) 04/13/2015 [facility] Glucose 117 mg/dL High 74-106 (315)- - BUN 9 mg/dL 7-18 Creatinine 0.6 mg/dL 0.6-1.3 Glom Filtration Rate, Estimate >60 mL/min >60 If >60 mL/min >60 88 BUN/Creat 15.0 ratio Sodium 140 mmol/L 136-145 Potassium 3.7 mmol/L 3.5-5.1 Chloride 104 mmol/L 98-107 Carbon Dioxide 27 mmol/L 21-32 Anion Gap 9 mEq/L 8-16 Calcium 8.6 mg/dL 8.5-10.1 Glycohemoglobin A1c 04/13/2015 [facility] Glycohemoglobin 6.4 % High 4.2-6.3 89 (315)- - (A1c) eAG 137 mg/dL Laboratory test 03/12/2015 [facility] Thyroid Stim 0.20 uIU/mL Low 0.36-3.74 90 finding (315)- - Hormone BMP (Basic) 01/20/2015 [facility] Glucose 110 mg/dL High 74-106 (315)- - BUN 11 mg/dL 7-18 Creatinine 0.6 mg/dL 0.6-1.3 Glom Filtration Rate, Estimate >60 mL/min >60 If >60 mL/min >60 91 BUN/Creat 18.3 ratio Sodium 141 mmol/L 136-145 Potassium 4.1 mmol/L 3.5-5.1 Chloride 104 mmol/L 98-107 Carbon Dioxide 33 mmol/L High 21-32 Anion Gap 4 mEq/L Low 8-16 Calcium 8.3 mg/dL Low 8.5-10.1 Glycohemoglobin A1c 01/20/[address] [facility] Glycohemoglobin 6.5 % High 4.2-6.3 92 (315)- - (A1c) eAG 140 mg/dL LDL Cholesterol 01/20/2015 [facility] Cholesterol 142 mg/ dL < 200 93 Profile (315)- - Triglycerides 96 mg/dL < 150 94 HDL Cholesterol 67 mg/dL > 40 95 LDL-Cholesterol 56 mg/dL < 100 96 Liver Function 01/20/2015 [facility] Total Protein 7.0 g/ dL 6.4-8.2 Tests (315)- - Albumin 3.2 g/dL Low 3.4-5.0 Globulin 3.8 g/dL 1.9-4.3 Alb/Glob 0.8 ratio Bilirubin,Total 0.5 mg/dL 0.2-1.0 Bilirubin,Direct 0.1 mg/dL 0.0-0.2 Bilirubin,Indirect 0.4 mg/dL 0.0-0.9 Sgot/Ast 11 U/L Low 15-37 97 SGPT/Alt 24 U/L 12-78 Alkaline Phosphatase 145 U/L High 45-117 Laboratory test 01/20/2015 [facility] Thyroid Stim See Note 98 finding (315)- - Hormone Free T4 0.82 ng/dL 0.76-1.46 Hemoglobin A1c 10/20/2014 [facility] Glycohemoglobin (A1c ) 6.0 % 4.2-6.3 99 (315)- - eAG 126 mg/dL CBC W/Automated Diff 10/20/2014 [facility] White Blood 8.0 K/uL 3.1-10.7 (315)- - Count Red Blood Count 3.55 M/uL Low 3.90-5.40 Hemoglobin 12.1 gm/dL 11.6-15.8 Hematocrit 36.0 % 36.0-46.1 Mean Cell Volume 101.4 fl High 80.9-99.0 Mean Corpuscular HGB 34.1 pg High 25.9-32.7 Mean Corpuscular HGB Conc 33.6 g/dL 30.8-34.3 Platelet Count 316 K/uL 155-360 Red Cell Distri Width SD 46.5 fl 3-47 Red Cell Distri Width %CV 12.9 % 11.7-14.4 Mean Platelet Volume 10.5 fL 8.9-12.4 Neut% 63.4 % 40.4-72.8 Lymph % 26.8 % 17.0-46.1 Hendricks % 7.4 % 4.3-13.2 Eo% 1.8 % 0.0-6.6 Bas% 0.6 % 0.0-1.1 Neut# 5.06 K/uL 1.0-7.0 Lymph # 2.14 K/uL 1.8-7.0 Hendricks # 0.59 K/uL 0.3-0.9 Eos # 0.14 K/uL 0.0-0.5 Baso # 0.05 K/uL 0.0-0.1 Basic Metabolic Panel 10/20/2014 [facility] Glucose 109 mg/dL High 74-106 (315)- - BUN 12 mg/dL 7-18 Creatinine 0.7 mg/dL 0.6-1.3 Glom Filtration Rate, Estimate >60 mL/min >60 If >60 mL/min >60 100 BUN/Creat 17.1 ratio Sodium 141 mmol/L 136-145 Potassium 3.8 mmol/L 3.5-5.1 Chloride 105 mmol/L 98-107 Carbon Dioxide 26 mmol/L 21-32 Anion Gap 10 mEq/L 8-16 Calcium 8.4 mg/dL Low 8.5-10.1 Laboratory test 10/20/2014 [facility] Vitamin B12 1309 pg /mL High 193-986 101 finding (315)- - Laboratory test 09/15/2014 [facility] TSH 0.23 Low 0.34-5.60 finding uIU/mL Blood Culture 08/23/2014 [facility] Blood Culture See Note 102 (315)- - Aerobic Blood Culture Anaerobic See Note 103 Blood Culture 08/23/2014 [facility] Blood Culture See Note 104 (315)- - Aerobic Blood Culture Anaerobic See Note 105 Comprehensive Metabolic 08/23/2014 [facility] Glucose 199 mg/dL High 74-106 Panel (315)- - BUN 16 mg/dL 7-18 Creatinine 0.7 mg/dL 0.6-1.3 Glom Filtration Rate, Estimate >60 mL/min >60 If >60 mL/min >60 106 BUN/Creat 22.8 ratio Sodium 142 mmol/L 136-145 Potassium 3.5 mmol/L 3.5-5.1 Chloride 106 mmol/L 98-107 Carbon Dioxide 26 mmol/L 21-32 Anion Gap 10 mEq/L 8-16 Calcium 8.0 mg/dL Low 8.5-10.1 Total Protein 7.4 g/dL 6.4-8.2 Albumin 3.5 g/dL 3.4-5.0 Globulin 3.9 g/dL 1.9-4.3 Alb/Glob 0.9 ratio Bilirubin,Total 0.6 mg/dL 0.2-1.0 Sgot/Ast 19 U/L 15-37 SGPT/Alt 24 U/L 12-78 Alkaline Phosphatase 181 U/L High 45-117 Laboratory test finding 08/23/[address] [facility] Lipase 80 U /L 73-393 107 (315)- - C-Reactive Protein,Quant 3.8 mg/L <3.0 108 Lactic Acid 2.1 mmol/L High 0.4-2.0 CBC 08/23/[address] [facility] White Blood Count 18.0 K/uL High 3.1-10.7 (315)- - Red Blood Count 4.08 M/uL 3.90-5.40 Hemoglobin 14.1 gm/dL 11.6-15.8 Hematocrit 41.7 % 36.0-46.1 Mean Cell Volume 102.2 fl High 80.9-99.0 Mean Corpuscular HGB 34.6 pg High 25.9-32.7 Mean Corpuscular HGB Conc 33.8 g/dL 30.8-34.3 Platelet Count 349 K/uL 155-360 Red Cell Distri Width %CV 12.9 % 11.7-14.4 Mean Platelet Volume 11.3 fL 8.9-12.4 Urine HCG 08/23/2014 [facility] Urine HCG See Note 109 (Qualitative) (315)- - (Qualitative) Urine Screen 08/23/[address] [facility] Urine Screen See Note 110 (315)- - Laboratory test 08/01/2014 [facility] Hemoglobin A1c 6.4 % High 4.1-5 111 finding .9 Liver Function 07/28/[address] [facility] Total Protein 7.3 g/ dL 6.4-8 Tests (315)- - .2 Albumin 3.7 g/dL 3.4-5.0 Globulin 3.6 g/dL 1.9-4.3 Alb/Glob 1.0 ratio Bilirubin,Total 0.5 mg/dL 0.2-1.0 Bilirubin,Direct 0.2 mg/dL 0.0-0.2 Bilirubin,Indirect 0.3 mg/dL 0.0-0.9 Sgot/Ast 17 U/L 15-37 SGPT/Alt 30 U/L 12-78 Alkaline Phosphatase 172 U/L High 45-117 LDL Cholesterol 07/28/[address] [facility] Cholesterol 117 mg/ dL < 200 112 Profile (315)- - Triglycerides 128 mg/dL < 150 113 HDL Cholesterol 60 mg/dL > 40 114 LDL-Cholesterol 31 mg/dL < 100 115 Laboratory test 06/21/2014 [facility] Thyroid Stim 0.18 uIU/mL Low 0.36-3.74 116 finding (315)- - Hormone Free T4 0.88 ng/dL 0.76-1.46 Triiodothyronine,Total 116 ng/dL 71-180 117 Laboratory test finding 04/21/2014 N2N/CCD Import % A1c 6.5 % 4.1-6.5 Alt 13.0 U/L 9.0-52.0 Ast 14.0 U/L 14.0-36.0 BUN 10.0 mg/dL 7.0-18.0 BUN/Creat Ratio 14.3 ratio 12.0-20.0 Calcium 9.7 mg/dL 8.7-10.5 Chloride 106.0 mmol/L 98.0-107.0 Co2 26.0 mmol/L 22.0-30.0 Creatinine-Serum 0.7 mg/dL 0.7-1.2 Glucose 118.0 mg/dL High 75.0-110.0 Potasium 4.3 mmol/L 3.6-5.0 Sodium 142.0 mmil/L 137.0-145.0 TSH 0.04 uIU/ml Low 0.50-6.00 eGFR 91.3 Lipid Panel 04/21/2014 N2N/[facility] Import Chol/HDL Ratio 3.0 ratio Cholesterol 187.0 mg/dL 50.0-199.0 HDL 62.0 mg/dL 29.0-86.0 LDL, Calculated 100.6 mg/dL 20.0-129.0 Triglycerides 122.0 mg/dL 30.0-249.0 vLDL 24.4 ng/dL Lipid Panel 01/26/2014 [employer] [facility] Chol/HDL Ratio 2.9 ratio Cholesterol 167.0 mg/dL 50.0-199.0 HDL 57.0 mg/dL 29.0-86.0 LDL, Calculated 79.2 mg/dL 20.0-129.0 Triglycerides 154.0 mg/dL 30.0-249.0 vLDL 30.8 ng/dL Laboratory test finding 01/26/2014 [employer] Import % A1c 6.5 % 4.1-6.5 Alt 17.0 U/L 9.0-52.0 Ast 16.0 U/L 14.0-36.0 BUN 11.0 mg/dL 7.0-18.0 BUN/Creat Ratio 15.7 ratio 12.0-20.0 Calcium 9.9 mg/dL 8.7-10.5 Chloride 105.0 mmol/L 98.0-107.0 Co2 27.0 mmol/L 22.0-30.0 Creatinine-Serum 0.7 mg/dL 0.7-1.2 Glucose 134.0 mg/dL High 75.0-110.0 Potasium 4.1 mmol/L 3.6-5.0 Sodium 144.0 mmil/L 137.0-145.0 eGFR 91.3 Lipid Panel 11/01/2013 [employer] [facility] Chol/HDL Ratio 3.1 ratio Cholesterol 158.0 mg/dL 50.0-199.0 HDL 51.0 mg/dL 29.0-86.0 LDL, Calculated 78.4 mg/dL 20.0-129.0 Triglycerides 143.0 mg/dL 30.0-249.0 vLDL 28.6 ng/dL Laboratory test finding 11/01/2013 [employer] Import % A1c 6.5 % 4.1-6.5 % Baso. 1.1 % 0.0-2.0 % Eos. 2.4 % 0.0-4.0 % Lymph 26 % 20-44 % Hendricks 8.6 % 2.0-10.0 % Jony 62 % 50-70 Absolute Baso. 0.1 K/ul 0.0-0.3 Absolute Eos. 0.2 K/ul 0.0-0.5 Absolute Lymph. 1.9 K/ul 0.8-4.8 Absolute Hendricks. 0.6 K/ul 0.1-1.0 Absolute Jony. 4.59 K/ul 2.05-7.63 Alt 18.0 U/L 9.0-52.0 Ast 17.0 U/L 14.0-36.0 BUN 14.0 mg/dL 7.0-18.0 BUN/Creat Ratio 20.0 ratio 12.0-20.0 Calcium 8.7 mg/dL 8.7-10.5 Chloride 105.0 mmol/L 98.0-107.0 Co2 27.0 mmol/L 22.0-30.0 Creatinine-Serum 0.7 mg/dL 0.7-1.2 Folate 15.2 ng/mL 6.0-15.4 Glucose 118.0 mg/dL High 75.0-110.0 HCT 33.1 % Low 37.0-51.0 HGB 11.7 Gm/dl Low 12.0-16.0 MCH 33.5 pg High 26.0-32.0 MCHC 35.2 g/dL 31.0-36.0 MCV 95.3 Fl 80.0-97.0 MPV 8.0 fL 6.0-10.0 PLT 347 K/ul 140-440 Potasium 3.9 mmol/L 3.6-5.0 RBC 3.5 M/ul Low 4.2-6.3 RDW 12.7 % 11.5-14.5 Sodium 143.0 mmil/L 137.0-145.0 Vitamin B12 1151.0 pg/mL High 200.0-900.0 Vitamin D 55.7 ng/mL 30.0-100.0 WBC 7.4 K/ul 4.1-10.9 eGFR 91.3 Laboratory test finding 09/15/2013 N2N/CCD Import Free T4 0.99 ng/dL 0.71-1.85 Thyroid Stim Hormone 0.04 uIU/mL Low 0.49-4.67 118 Laboratory test finding 07/22/2013 N2N/CCD Import % A1c 6.5 % 4.1-6.5 BUN 11.0 mg/dL 7.0-18.0 BUN/Creat Ratio 15.7 ratio 12.0-20.0 Calcium 9.3 mg/dL 8.7-10.5 Chloride 107.0 mmol/L 98.0-107.0 Co2 25.0 mmol/L 22.0-30.0 Creatinine-Serum 0.7 mg/dL 0.7-1.2 Glucose 120.0 mg/dL High 75.0-110.0 Potasium 4.0 mmol/L 3.6-5.0 Sodium 141.0 mmil/L 137.0-145.0 eGFR 91.7 Laboratory test finding 07/22/2013 N2N/CCD Import Bas% 0.4 % 0.0-1.1 Baso # 0.04 K/uL 0.0-0.1 Eo% 1.7 % 0.0-6.6 Eos # 0.16 K/uL 0.0-0.5 Ferritin 6.1 ng/mL 3-105 Hematocrit 34.4 % Low 36.0-46.1 Hemoglobin 11.1 gm/dL Low 11.6-15.8 Lymph # 2.08 K/uL 0.8-3.4 Lymph % 22.2 % 17.0-46.1 Mean Cell Volume 96.6 fl 80.9-99.0 Mean Corpuscular HGB 31.2 pg 25.9-32.7 Mean Corpuscular HGB Conc 32.3 g/dL 30.8-34.3 Mean Platelet Volume 11.3 fL 8.9-12.4 Hendricks # 0.76 K/uL 0.3-0.9 Hendricks % 8.1 % 4.3-13.2 Neut# 6.34 K/uL 1.0-7.0 Neut% 67.6 % 40.4-72.8 Platelet Count 379 K/uL High 155-360 Red Blood Count 3.56 M/uL Low 3.90-5.40 Red Cell Distri Width %CV 14.3 % 11.7-14.4 Red Cell Distri Width SD 48.7 fl High 3-47 Reticulocyte Count,Automated 1.6 % 0.5-1.8 Serum Iron 67 g/dL 25-156 Total Iron Binding Capacity 558 g/dL High 245-419 Transferrin %Saturation 12 % 12-57 White Blood Count 9.4 K/uL 3.1-10.7 Laboratory test finding 04/26/2013 N2N/CCD Import % A1c 6.6 % High 4.1- 6.5 % Baso. 0.9 % 0.0-2.0 % Eos. 3.8 % 0.0-4.0 % Lymph 18 % Low 20-44 % Hendricks 9.1 % 2.0-10.0 % Jony 69 % 50-70 Absolute Baso. 0.1 K/ul 0.0-0.3 Absolute Eos. 0.5 K/ul 0.0-0.5 Absolute Lymph. 2.1 K/ul 0.8-4.8 Absolute Hendricks. 1.1 K/ul High 0.1-1.0 Absolute Jony. 8.12 K/ul High 2.05-7.63 BUN 8.0 mg/dL 7.0-18.0 BUN/Creat Ratio 11.4 ratio Low 12.0-20.0 Calcium 9.3 mg/dL 8.7-10.5 Chloride 106.0 mmol/L 98.0-107.0 Co2 28.0 mmol/L 22.0-30.0 Creatinine-Serum 0.7 mg/dL 0.7-1.2 Folate 19.6 ng/mL High 6.0-15.4 Glucose 96.0 mg/dL 75.0-110.0 HCT 35.7 % Low 37.0-51.0 HGB 11.5 Gm/dl Low 12.0-16.0 MCH 30.2 pg 26.0-32.0 MCHC 32.1 g/dL 31.0-36.0 MCV 94.0 Fl 80.0-97.0 MPV 7.3 fL 6.0-10.0 PLT 400 K/ul 140-440 Potasium 3.8 mmol/L 3.6-5.0 RBC 3.8 M/ul Low 4.2-6.3 RDW 13.5 % 11.5-14.5 Sodium 143.0 mmil/L 137.0-145.0 Vitamin B12 1701.0 pg/mL High 200.0-900.0 Vitamin D 49.5 ng/mL 30.0-100.0 WBC 11.9 K/ul High 4.1-10.9 eGFR 91.7 Laboratory test 04/26/2013 N2N/CCD Import Throat Culture See Note 119 finding Complete Urine 02/11/2013 N2N/CCD Import Urine Creatinine 59.6 mg/dL Microalbumin/Creat Urine Microalbumin <5.0 mg/L <18.5 120 Laboratory test finding 02/04/2013 N2N/CCD Import % A1c 6.5 % 4.1-6.5 BUN 11.0 mg/dL 7.0-18.0 BUN/Creat Ratio 15.7 ratio 12.0-20.0 Calcium 9.7 mg/dL 8.7-10.5 Chloride 104.0 mmol/L 98.0-107.0 Co2 23.0 mmol/L 22.0-30.0 Creatinine-Serum 0.7 mg/dL 0.7-1.2 Glucose 120.0 mg/dL High 75.0-110.0 Potasium 4.4 mmol/L 3.6-5.0 Sodium 142.0 mmil/L 137.0-145.0 eGFR 91.7 Laboratory test 12/24/2012 N2N/CCD Import Polyp Colon See Note 121 finding And/Or Rectum Laboratory test 11/19/2012 N2N/CCD Import % A1c 6.5 % 4.1-6.5 finding % Baso. 1.0 % 0.0-2.0 % Eos. 1.7 % 0.0-4.0 % Lymph 19 % Low 20-44 % Hendricks 7.7 % 2.0-10.0 % Jony 71 % High 50-70 Absolute Baso. 0.1 K/ul 0.0-0.3 Absolute Eos. 0.2 K/ul 0.0-0.5 Absolute Lymph. 1.7 K/ul 0.8-4.8 Absolute Hendricks. 0.7 K/ul 0.1-1.0 Absolute Jony. 6.42 K/ul 2.05-7.63 BUN 15.0 mg/dL 7.0-18.0 BUN/Creat Ratio 21.4 ratio High 12.0-20.0 Calcium 9.4 mg/dL 8.7-10.5 Chloride 107.0 mmol/L 98.0-107.0 Co2 23.0 mmol/L 22.0-30.0 Creatinine-Serum 0.7 mg/dL 0.7-1.2 Folate > 20 ng/mL High 6.0-15.4 Glucose 114.0 mg/dL High 75.0-110.0 HCT 33.7 % Low 37.0-51.0 HGB 11.2 Gm/dl Low 12.0-16.0 MCH 31.9 pg 26.0-32.0 MCHC 33.1 g/dL 31.0-36.0 MCV 96.3 Fl 80.0-97.0 MPV 8.1 fL 6.0-10.0 PLT 379 K/ul 140-440 Potasium 4.0 mmol/L 3.6-5.0 RBC 3.5 M/ul Low 4.2-6.3 RDW 12.3 % 11.5-14.5 Sodium 144.0 mmil/L 137.0-145.0 Vitamin B12 900.0 pg/mL 200.0-900.0 Vitamin D 44.1 ng/mL 30.0-100.0 WBC 9.1 K/ul 4.1-10.9 eGFR 91.7 Laboratory test 09/15/2012 N2N/CCD Import Surgical See Note 122 finding Pathology Laboratory test 09/01/2012 N2N/CCD Import % A1c 7.0 % High 4.1-6.5 finding % Baso. 1.1 % 0.0-2.0 % Eos. 2.0 % 0.0-4.0 % Lymph 19 % Low 20-44 % Hendricks 7.6 % 2.0-10.0 % Jony 71 % High 50-70 A/G Ratio 1.2 ratio Low 1.6-2.2 Absolute Baso. 0.1 K/ul 0.0-0.3 Absolute Eos. 0.2 K/ul 0.0-0.5 Absolute Lymph. 1.6 K/ul 0.8-4.8 Absolute Hendricks. 0.7 K/ul 0.1-1.0 Absolute Jony. 6.18 K/ul 2.05-7.63 Albumin 3.7 g/dL 3.5-5.0 Alk. Phos. 129.0 U/L High 30.0-126.0 Alt 12.0 U/L 9.0-52.0 Anion Gap 14.0 mmol/L 10.0-20.0 Ast 13.0 U/L Low 14.0-36.0 BUN 14.0 mg/dL 7.0-18.0 BUN/Creat Ratio 20.0 ratio 12.0-20.0 Calcium 9.9 mg/dL 8.7-10.5 Chloride 104.0 mmol/L 98.0-107.0 Co2 25.0 mmol/L 22.0-30.0 Creatinine-Serum 0.7 mg/dL 0.7-1.2 Globulin 3.1 g/dL 2.7-4.3 Glucose 114.0 mg/dL High 75.0-110.0 HCT 34.9 % Low 37.0-51.0 HGB 11.5 Gm/dl Low 12.0-16.0 MCH 32.5 pg High 26.0-32.0 MCHC 33.0 g/dL 31.0-36.0 MCV 98.3 Fl High 80.0-97.0 MPV 8.2 fL 6.0-10.0 PLT 394 K/ul 140-440 Potasium 4.3 mmol/L 3.6-5.0 RBC 3.6 M/ul Low 4.2-6.3 RDW 12.5 % 11.5-14.5 Sodium 143.0 mmil/L 137.0-145.0 Total Bilirubin 0.5 mg/dL 0.2-1.3 Total Protein 6.8 g/dL 6.3-8.2 WBC 8.8 K/ul 4.1-10.9 eGFR 87.9 mi/minper1.7 123 Lipid Panel 09/01/2012 N2N/CCD Import Chol/HDL Ratio 3.1 ratio Cholesterol 179.0 mg/dL 50.0-199.0 HDL 58.0 mg/dL 29.0-86.0 LDL, Calculated 90.4 mg/dL 20.0-129.0 Triglycerides 153.0 mg/dL 30.0-249.0 vLDL 30.6 ng/dL 1 E11.9 2 Elevated levels of HbA1c suggest the need for more aggressive treatment of glycemia. The [place] [employer] recommends that a primary goal of therapy should be a HbA1c of <7% and that physicians should re-evaluate the treatment regimen in patients with HbA1c values consistently >8%. 3 Note: Persistent reduction for 3 months or more in an eGFR <60 mL/min/1.73 m2 defines CKD. Patients with eGFR values >/=60 mL/min/1.73 m2 may also have CKD if evidence of persistent proteinuria is present. The original MDRD equation for estimated GFR is not valid for patients less than 18 years of age. Additional information may be found at [email or web address]. 4 3 mo 5 Per NCEP ATP III Guidelines: Results lower than 40 mg/dL are suggestive of increased risk for coronary artery disease. Results > or=to 60 mg/dL are considered a negative risk factor. 6 Per NCEP ATP III Guidelines: Normal Population <130 Patients with medical conditions: CHD/DM Optimal: <100 Borderline high: 130-159 High: 160-189 Very high: >189 7 Updated reference range on new analyzer 8 Updated reference range on new analyzer 9 Concerning GFR Guidelines: Normal function or mild renal disease, if clinically at risk: >/=60 mL/min Moderately decreased: 30-59 Severely decreased: 15-29 Renal failure: <15 Glomerular Filtration Rate (GFR) is estimated based on the MDRD equation, which assumes a steady state for creatinine as recommended by the National Kidney Disease Education Program in conjunction with the National Institutes of Health and the National Kidney Foundation. Clinical conditions in which it may be necessary to measure GFR by using clearance methods include extremes of age and body size, severe malnutrition or obesity, diseases of skeletal muscle, paraplegia or quadriplegia, vegetarian diet, rapidly changing kidney function, and calculation of the dose of potentially toxic drugs that are excreted by the kidneys. 10 Concerning GFR Guidelines for Americans: Normal function or mild renal disease, if clinically at risk: >/=60 mL/min Moderately decreased: 30-59 Severely decreased: 15-29 Renal failure: <15 11 Updated Reference Range 12 E11.9 I10 13 Note: Persistent reduction for 3 months or more in an eGFR <60 mL/min/1.73 m2 defines CKD. Patients with eGFR values >/=60 mL/min/1.73 m2 may also have CKD if evidence of persistent proteinuria is present. The original MDRD equation for estimated GFR is not valid for patients less than 18 years of age. Additional information may be found at [email or web address]. 14 Elevated levels of HbA1c suggest the need for more aggressive treatment of glycemia. The [place] [employer] recommends that a primary goal of therapy should be a HbA1c of <7% and that physicians should re-evaluate the treatment regimen in patients with HbA1c values consistently >8%. 15 6 weeks 16 3 mos 17 Per NCEP ATP III Guidelines: Results lower than 40 mg/dL are suggestive of increased risk for coronary artery disease. Results > or=to 60 mg/dL are considered a negative risk factor. 18 Per NCEP ATP III Guidelines: Normal Population <130 Patients with medical conditions: CHD/DM Optimal: <100 Borderline high: 130-159 High: 160-189 Very high: >189 19 Updated reference range on new analyzer 20 Updated reference range on new analyzer 21 Concerning GFR Guidelines: Normal function or mild renal disease, if clinically at risk: >/=60 mL/min Moderately decreased: 30-59 Severely decreased: 15-29 Renal failure: <15 Glomerular Filtration Rate (GFR) is estimated based on the MDRD equation, which assumes a steady state for creatinine as recommended by the National Kidney Disease Education Program in conjunction with the National Institutes of Health and the National Kidney Foundation. Clinical conditions in which it may be necessary to measure GFR by using clearance methods include extremes of age and body size, severe malnutrition or obesity, diseases of skeletal muscle, paraplegia or quadriplegia, vegetarian diet, rapidly changing kidney function, and calculation of the dose of potentially toxic drugs that are excreted by the kidneys. 22 Concerning GFR Guidelines for Americans: Normal function or mild renal disease, if clinically at risk: >/=60 mL/min Moderately decreased: 30-59 Severely decreased: 15-29 Renal failure: <15 23 Updated Reference Range 24 1 SST Specimen received unspun today 25 Updated reference range on new analyzer 26 Updated reference range on new analyzer 27 Concerning GFR Guidelines: Normal function or mild renal disease, if clinically at risk: >/=60 mL/min Moderately decreased: 30-59 Severely decreased: 15-29 Renal failure: <15 Glomerular Filtration Rate (GFR) is estimated based on the MDRD equation, which assumes a steady state for creatinine as recommended by the National Kidney Disease Education Program in conjunction with the National Institutes of Health and the National Kidney Foundation. Clinical conditions in which it may be necessary to measure GFR by using clearance methods include extremes of age and body size, severe malnutrition or obesity, diseases of skeletal muscle, paraplegia or quadriplegia, vegetarian diet, rapidly changing kidney function, and calculation of the dose of potentially toxic drugs that are excreted by the kidneys. 28 Concerning GFR Guidelines for Americans: Normal function or mild renal disease, if clinically at risk: >/=60 mL/min Moderately decreased: 30-59 Severely decreased: 15-29 Renal failure: <15 29 Updated Reference Range 30 ACUTE DIVERTICULITIS 31 Note: Persistent reduction for 3 months or more in an eGFR <60 mL/min/1.73 m2 defines CKD. Patients with eGFR values >/=60 mL/min/1.73 m2 may also have CKD if evidence of persistent proteinuria is present. The original MDRD equation for estimated GFR is not valid for patients less than 18 years of age. Additional information may be found at [email or web address]. 32 Note: Persistent reduction for 3 months or more in an eGFR <60 mL/min/1.73 m2 defines CKD. Patients with eGFR values >/=60 mL/min/1.73 m2 may also have CKD if evidence of persistent proteinuria is present. The original MDRD equation for estimated GFR is not valid for patients less than 18 years of age. Additional information may be found at [email or web address]. 33 Elevated levels of HbA1c suggest the need for more aggressive treatment of glycemia. The [place] [employer] recommends that a primary goal of therapy should be a HbA1c of <7% and that physicians should re-evaluate the treatment regimen in patients with HbA1c values consistently >8%. 34 10,000 - 50,000 CFU/mL 35 NAUSEA,VOMITTING,ABD CRAMPS, POSS FEVER 36 URINE, CLEAN CATCH 37 POSSIBLE UROGENITAL CONTAMINATION. 38 URINE, CLEAN CATCH 39 Specimen slightly Hemolyzed, interpret with caution 40 3 mos 41 Updated reference range on new analyzer 42 Updated reference range on new analyzer 43 Concerning GFR Guidelines: Normal function or mild renal disease, if clinically at risk: >/=60 mL/min Moderately decreased: 30-59 Severely decreased: 15-29 Renal failure: <15 Glomerular Filtration Rate (GFR) is estimated based on the MDRD equation, which assumes a steady state for creatinine as recommended by the National Kidney Disease Education Program in conjunction with the National Institutes of Health and the National Kidney Foundation. Clinical conditions in which it may be necessary to measure GFR by using clearance methods include extremes of age and body size, severe malnutrition or obesity, diseases of skeletal muscle, paraplegia or quadriplegia, vegetarian diet, rapidly changing kidney function, and calculation of the dose of potentially toxic drugs that are excreted by the kidneys. 44 Concerning GFR Guidelines for Americans: Normal function or mild renal disease, if clinically at risk: >/=60 mL/min Moderately decreased: 30-59 Severely decreased: 15-29 Renal failure: <15 45 Updated reference range on new analyzer 46 Per NCEP ATP III Guidelines: Results lower than 40 mg/dL are suggestive of increased risk for coronary artery disease. Results > or=to 60 mg/dL are considered a negative risk factor. 47 Per NCEP ATP III Guidelines: Normal Population <130 Patients with medical conditions: CHD/DM Optimal: <100 Borderline high: 130-159 High: 160-189 Very high: >189 48 Updated reference range on new analyzer 49 Updated reference range on new analyzer 50 Concerning GFR Guidelines: Normal function or mild renal disease, if clinically at risk: >/=60 mL/min Moderately decreased: 30-59 Severely decreased: 15-29 Renal failure: <15 Glomerular Filtration Rate (GFR) is estimated based on the MDRD equation, which assumes a steady state for creatinine as recommended by the National Kidney Disease Education Program in conjunction with the National Institutes of Health and the National Kidney Foundation. Clinical conditions in which it may be necessary to measure GFR by using clearance methods include extremes of age and body size, severe malnutrition or obesity, diseases of skeletal muscle, paraplegia or quadriplegia, vegetarian diet, rapidly changing kidney function, and calculation of the dose of potentially toxic drugs that are excreted by the kidneys. 51 Concerning GFR Guidelines for Americans: Normal function or mild renal disease, if clinically at risk: >/=60 mL/min Moderately decreased: 30-59 Severely decreased: 15-29 Renal failure: <15 52 Updated reference range on new analyzer 53 E53.8,E11.9 54 Elevated levels of HbA1c suggest the need for more aggressive treatment of glycemia. The [place] [employer] recommends that a primary goal of therapy should be a HbA1c of <7% and that physicians should re-evaluate the treatment regimen in patients with HbA1c values consistently >8%. 55 Note: Persistent reduction for 3 months or more in an eGFR <60 mL/min/1.73 m2 defines CKD. Patients with eGFR values >/=60 mL/min/1.73 m2 may also have CKD if evidence of persistent proteinuria is present. The original MDRD equation for estimated GFR is not valid for patients less than 18 years of age. Additional information may be found at [email or web address]. 56 today 57 3 mo 58 Concerning GFR Guidelines: Normal function or mild renal disease, if clinically at risk: >/=60 mL/min Moderately decreased: 30-59 Severely decreased: 15-29 Renal failure: <15 Glomerular Filtration Rate (GFR) is estimated based on the MDRD equation, which assumes a steady state for creatinine as recommended by the National Kidney Disease Education Program in conjunction with the National Institutes of Health and the National Kidney Foundation. Clinical conditions in which it may be necessary to measure GFR by using clearance methods include extremes of age and body size, severe malnutrition or obesity, diseases of skeletal muscle, paraplegia or quadriplegia, vegetarian diet, rapidly changing kidney function, and calculation of the dose of potentially toxic drugs that are excreted by the kidneys. 59 Concerning GFR Guidelines for Americans: Normal function or mild renal disease, if clinically at risk: >/=60 mL/min Moderately decreased: 30-59 Severely decreased: 15-29 Renal failure: <15 60 Per NCEP ATP III Guidelines: Results lower than 40 mg/dL are suggestive of increased risk for coronary artery disease. Results > or=to 60 mg/dL are considered a negative risk factor. 61 Per NCEP ATP III Guidelines: Normal Population <130 Patients with medical conditions: CHD/DM Optimal: <100 Borderline high: 130-159 High: 160-189 Very high: >189 62 3 mos Fastin hours 3 mos Fastin hours 63 Concerning GFR Guidelines: Normal function or mild renal disease, if clinically at risk: >/=60 mL/min Moderately decreased: 30-59 Severely decreased: 15-29 Renal failure: <15 Glomerular Filtration Rate (GFR) is estimated based on the MDRD equation, which assumes a steady state for creatinine as recommended by the National Kidney Disease Education Program in conjunction with the National Institutes of Health and the National Kidney Foundation. Clinical conditions in which it may be necessary to measure GFR by using clearance methods include extremes of age and body size, severe malnutrition or obesity, diseases of skeletal muscle, paraplegia or quadriplegia, vegetarian diet, rapidly changing kidney function, and calculation of the dose of potentially toxic drugs that are excreted by the kidneys. 64 Concerning GFR Guidelines for Americans: Normal function or mild renal disease, if clinically at risk: >/=60 mL/min Moderately decreased: 30-59 Severely decreased: 15-29 Renal failure: <15 65 E03.9 Z85.850 66 Thyroglobulin Antibody measured by [employer] 67 According to the National Academy of Clinical Biochemistry, the reference interval for Thyroglobulin (TG) should be related to euthyroid patients and not for patients who underwent thyroidectomy. TG reference intervals for these patients depend on the residual mass of the thyroid tissue left after surgery. Establishing a post-operative baseline is recommended. The assay limit of quantitation is 0.1 ng/mL Thyroglobulin measured by [employer] [facility] Performed at: - [facility] [address] [id number] [employer]visor [employer]: Sweta Walters MD, Phone: [phone] 68 3 mos 69 Concerning GFR Guidelines: Normal function or mild renal disease, if clinically at risk: >/=60 mL/min Moderately decreased: 30-59 Severely decreased: 15-29 Renal failure: <15 Glomerular Filtration Rate (GFR) is estimated based on the MDRD equation, which assumes a steady state for creatinine as recommended by the National Kidney Disease Education Program in conjunction with the National Institutes of Health and the National Kidney Foundation. Clinical conditions in which it may be necessary to measure GFR by using clearance methods include extremes of age and body size, severe malnutrition or obesity, diseases of skeletal muscle, paraplegia or quadriplegia, vegetarian diet, rapidly changing kidney function, and calculation of the dose of potentially toxic drugs that are excreted by the kidneys. 70 Concerning GFR Guidelines for Americans: Normal function or mild renal disease, if clinically at risk: >/=60 mL/min Moderately decreased: 30-59 Severely decreased: 15-29 Renal failure: <15 71 Per NCEP ATP III Guidelines: Results lower than 40 mg/dL are suggestive of increased risk for coronary artery disease. Results > or=to 60 mg/dL are considered a negative risk factor. 72 Per NCEP ATP III Guidelines: Normal Population <130 Patients with medical conditions: CHD/DM Optimal: <100 Borderline high: 130-159 High: 160-189 Very high: >189 73 QUERY: Is Patient Fasting? Y 74 QUERY: Is Patient Fasting? Y 75 Note: Persistent reduction for 3 months or more in an eGFR <60 mL/min/1.73 m2 defines CKD. Patients with eGFR values >/=60 mL/min/1.73 m2 may also have CKD if evidence of persistent proteinuria is present. The original MDRD equation for estimated GFR is not valid for patients less than 18 years of age. Additional information may be found at [email or web address]. 76 Elevated levels of HbA1c suggest the need for more aggressive treatment of glycemia. The [place] [employer] recommends that a primary goal of therapy should be a HbA1c of <7% and that physicians should re-evaluate the treatment regimen in patients with HbA1c values consistently >8%. 77 Vitamin D deficiency has been defined by the [employer] [employer] and an Endocrine Society practice guideline as a level of serum 25-OH vitamin D less than 20 ng/mL (1,2). The Endocrine Society went on to further define vitamin D insufficiency as a level between 21 and 29 ng/mL (2). 1. IOM ([place] [employer]). 2010. Dietary reference intakes for calcium and D. [place]: The National Academies Press. 2. Charan MF, Rose NC, Viviana NUÑEZ, et al. Evaluation, treatment, and prevention of vitamin D deficiency: an Endocrine Society clinical practice guideline. JCEM. 2010; 96(7):1911-30. Performed at: RN - [facility] [address] [id number] [employer]visor [employer]: Sweta Walters MD, Phone: [phone] 78 Reference range: 0 to 19 Unit: Units INTERPRETIVE INFORMATION: Cyclic Citrullinated Peptide Antibody, IgG 19 Units or less ................... Negative 20-39 Units ........................ Weak Positive 40-59 Units ........................ Moderate Positive 60 Units or greater ................ Strong Positive Anti-cyclic citrullinated peptide (anti-CCP), IgG antibodies are present in about 69-83 percent of patients with rheumatoid arthritis (RA) and have specificities of 93-95 percent. These autoantibodies may be present in the preclinical phase of disease, are associated with future RA development, and may predict radiographic joint destruction. Patients with weak positive results should be monitored and testing repeated. Performed by [facility], [address] [place] [id number] [email or web address], Mayito Ledesma MD, Lab. Director Unless otherwise specified, testing performed by [facility] [address] [place] [id number] 79 Elevated levels of HbA1c suggest the need for more aggressive treatment of glycemia. The [place] [employer] recommends that a primary goal of therapy should be a HbA1c of <7% and that physicians should re-evaluate the treatment regimen in patients with HbA1c values consistently >8%. 80 QUERY: Is the Patient Fasting? Y 81 Note: Persistent reduction for 3 months or more in an eGFR <60 mL/min/1.73 m2 defines CKD. Patients with eGFR values >/=60 mL/min/1.73 m2 may also have CKD if evidence of persistent proteinuria is present. The original MDRD equation for estimated GFR is not valid for patients less than 18 years of age. Additional information may be found at [email or web address]. 82 Reference Guidelines*: Desirable: ........... < 200 mg/dL Borderline High: ..... 200-239 mg/dL High: ................ >=240 mg/dL * The National Cholesterol Education Program (NCEP) 83 Reference Guidelines*: Normal: ............. < 150 mg/dL Borderline High: .... 150-199 mg/dL High: ............... 200-499 mg/dL Very High: .......... > 500 mg/dL * Source: National Cholesterol Education Program (NCEP) 84 Reference Guidelines*: Low HDL: ..... < 40 mg/dL Normal: ..... 40-60 mg/dL Desirable: ... > 60 mg/dL *The National Cholesterol Education Program(NCEP) 85 Reference Guidelines*: Optimal:........... <100 mg/dL Near Optimal....... 100-129 mg/dL Borderline High.... 130-159 mg/dL High............... 160-189 mg/dL Very High.......... >=190 mg/dL * Source: National Cholesterol Education Program (NCEP) 86 Values below the stated reference ranges of AST and ALT can be seen in normal populations. Clinical correlation is suggested. 87 6 weeks 88 Note: Persistent reduction for 3 months or more in an eGFR <60 mL/min/1.73 m2 defines CKD. Patients with eGFR values >/=60 mL/min/1.73 m2 may also have CKD if evidence of persistent proteinuria is present. The original MDRD equation for estimated GFR is not valid for patients less than 18 years of age. Additional information may be found at [email or web address]. 89 Elevated levels of HbA1c suggest the need for more aggressive treatment of glycemia. The [place] [employer] recommends that a primary goal of therapy should be a HbA1c of <7% and that physicians should re-evaluate the treatment regimen in patients with HbA1c values consistently >8%. 90 A low TSH should not be the sole basis for diagnosing primary hyperthyroidism, or primary hypopituitary function. Additional tests are suggested for confirmation. 91 Note: Persistent reduction for 3 months or more in an eGFR <60 mL/min/1.73 m2 defines CKD. Patients with eGFR values >/=60 mL/min/1.73 m2 may also have CKD if evidence of persistent proteinuria is present. The original MDRD equation for estimated GFR is not valid for patients less than 18 years of age. Additional information may be found at [email or web address]. 92 Elevated levels of HbA1c suggest the need for more aggressive treatment of glycemia. The [place] [employer] recommends that a primary goal of therapy should be a HbA1c of <7% and that physicians should re-evaluate the treatment regimen in patients with HbA1c values consistently >8%. 93 Reference Guidelines*: Desirable: ........... < 200 mg/dL Borderline High: ..... 200-239 mg/dL High: ................ >=240 mg/dL * The National Cholesterol Education Program (NCEP) 94 Reference Guidelines*: Normal: ............. < 150 mg/dL Borderline High: .... 150-199 mg/dL High: ............... 200-499 mg/dL Very High: .......... > 500 mg/dL * Source: National Cholesterol Education Program (NCEP) 95 Reference Guidelines*: Low HDL: ..... < 40 mg/dL Normal: ..... 40-60 mg/dL Desirable: ... > 60 mg/dL *The National Cholesterol Education Program(NCEP) 96 Reference Guidelines*: Optimal:........... <100 mg/dL Near Optimal....... 100-129 mg/dL Borderline High.... 130-159 mg/dL High............... 160-189 mg/dL Very High.......... >=190 mg/dL * Source: National Cholesterol Education Program (NCEP) 97 Values below the stated reference ranges of AST and ALT can be seen in normal populations. Clinical correlation is suggested. 98 01/20/15 LAB.SME PATIENT DOESN'T WANT TSH DONE 99 Elevated levels of HbA1c suggest the need for more aggressive treatment of glycemia. The [place] [employer] recommends that a primary goal of therapy should be a HbA1c of <7% and that physicians should re-evaluate the treatment regimen in patients with HbA1c values consistently >8%. 100 Note: Persistent reduction for 3 months or more in an eGFR <60 mL/min/1.73 m2 defines CKD. Patients with eGFR values >/=60 mL/min/1.73 m2 may also have CKD if evidence of persistent proteinuria is present. The original MDRD equation for estimated GFR is not valid for patients less than 18 years of age. Additional information may be found at [email or web address]. 101 QUERY: Is the Patient Fasting? Y 102 NO GROWTH: FINAL REPORT 103 NO GROWTH: FINAL REPORT 104 NO GROWTH: FINAL REPORT 105 NO GROWTH: FINAL REPORT 106 Note: Persistent reduction for 3 months or more in an eGFR <60 mL/min/1.73 m2 defines CKD. Patients with eGFR values >/=60 mL/min/1.73 m2 may also have CKD if evidence of persistent proteinuria is present. The original MDRD equation for estimated GFR is not valid for patients less than 18 years of age. Additional information may be found at [email or web address]. 107 LAB.DWM 108 LAB.DWM 109 PATIENT DISCHARGED PER MAXI A FROM ER 110 PATIENT DISCHARGED PER MAXI A FROM ER 111 today 112 Reference Guidelines*: Desirable: ........... < 200 mg/dL Borderline High: ..... 200-239 mg/dL High: ................ >=240 mg/dL * The National Cholesterol Education Program (NCEP) 113 Reference Guidelines*: Normal: ............. < 150 mg/dL Borderline High: .... 150-199 mg/dL High: ............... 200-499 mg/dL Very High: .......... > 500 mg/dL * Source: National Cholesterol Education Program (NCEP) 114 Reference Guidelines*: Low HDL: ..... < 40 mg/dL Normal: ..... 40-60 mg/dL Desirable: ... > 60 mg/dL *The National Cholesterol Education Program(NCEP) 115 Reference Guidelines*: Optimal:........... <100 mg/dL Near Optimal....... 100-129 mg/dL Borderline High.... 130-159 mg/dL High............... 160-189 mg/dL Very High.......... >=190 mg/dL * Source: National Cholesterol Education Program (NCEP) 116 A low TSH should not be the sole basis for diagnosing primary hyperthyroidism, or primary hypopituitary function. Additional tests are suggested for confirmation. 117 Performed at: RN - [facility] [address] [id number] [employer]visor [employer]: Sweta Walters MD, Phone: [phone] 118 A low TSH should not be the sole basis for diagnosing primary hyperthyroidism, or primary hypopituitary function. Additional tests are suggested for confirmation. 119 NORMAL THROAT LEVON 120 ERR= 121 OPERATION/PROCEDURE Colon DIAGNOSIS: PART 1: "ASCENDING COLON POLYP, BIOPSY": HYPERPLASTIC POLYP, WITH HEALING CHANGES. PART 2: "TRANSVERSE COLON POLYP, BIOPSY": HYPERPLASTIC POLYP. Nikky 1108 GROSS Part 1; "ASCENDING COLON POLYP". This contains nine rounded mcgee colored pieces of soft tissue measuring up to 0.5 cm.; filtered and submitted in toto within a single cassette. Part 2; "TRANSVERSE POLYP". This contains multiple rounded mcgee colored pieces of soft tissue measuring 1.5 x 0.6 x 0.3 cm. in aggregate; further sectioned and submitted in toto within a single cassette. BYRON/swapna MICROSCOPIC Part 1: Sections show congested and inflamed colonic mucosa lined by an increased number of goblet cells with smooth muscle ingrowth. The glands have a serrated, saw tooth appearance. The nuclei are bland, and basal. Part 2: Sections show colonic mucosa lined by an increased number of goblet cells. The glands have a serrated, saw tooth appearance. The nuclei are bland , and basal. PRE OPERATIVE DIAGNOSIS Screening colon REVIEW CODE CODE: I ---- KSENIA Hoff MD 12/27/12 6033 ---- 122 Pathology [facility] [address] [place] [address], [address] [place] [address] SURGICAL PATHOLOGY REPORT Name: Felix Rosas Pathology #: [id number] : 1955 (Age: 57) Sex: F Location: [facility] Med. Rec. # [id number] Date of Procedure: 09/15/2012 Billing #: [id number] Date Received: 09/15/2012 Requisition #: [id number] Physician(s): JAQUELINE CLAIRE MD Specimen(s) Received: A: Right hip B: Right upper abdomen C: Right neck Clinical Information: 1. 5 mm hyperpigmented inflamed papule on the right hip. 2. 5 mm inflamed papule on the right upper abdomen - multicolored. 3. 5 mm hyperpigmented papule with dark area on the right neck. Lesions getting larger, itch and bleed, neoplasm of uncertain behavior, 238.2. Gross Description: Specimen A is received in formalin labeled "right hip" is a cedillo to mcgee wrinkled rubbery polypoid tissue fragment measuring 0.7 x 0.6 x 0.5 cm. The specimen is bisected and submitted entirely. (1 block) Specimen B is received in formalin labeled "right upper abdomen" is a cedillo to mcgee smooth to wrinkled rubbery polypoid tissue fragment measuring 0.6 x 0.4 x 0.3 cm. There is a mcgee to cedillo centrally located crusty cap measuring approximately 0.3 cm in greatest dimension. The specimen is bisected and submitted entirely. (1 block) Specimen C is received in formalin labeled "right neck" is a cedillo to mcgee, dark cedillo to mcgee, smooth to wrinkled nodular polypoid tissue fragment measuring 0.7 x 0.4 x 0.3 cm. The specimen is bisected and submitted entirely. (1 block) kw /LUCY Diagnosis: A) RIGHT HIP - INTRADERMAL NEVUS. B) RIGHT UPPER ABDOMEN - INTRADERMAL NEVUS. C) RIGHT NECK - INTRADERMAL NEVUS. Reported: 09/16/2012 Electronic Signature rickie Del Rio MD [facility] ICD-9 Codes: 216.9 123 For -Congolese patients multiply result by 1.180 Procedures Date Code Description Status 07/06/2018 63352 Brief Emotional/Behav Assessment W/ Scoring Doc Per Completed Standard Inst 08/31/2017 33660 Brief Emotional/Behav Assessment W/ Scoring Doc Per Completed Standard Inst 07/01/2017 [id number] Mammogram Completed 06/02/2017 06539 Measure Blood Oxygen Level Single Determination Completed 04/15/2017 34475 Measure Blood Oxygen Level Single Determination Completed 04/11/2017 05634 Measure Blood Oxygen Level Single Determination Completed 02/03/2017 91225 Measure Blood Oxygen Level Single Determination Completed 2016 [id number] Colonoscopy Completed 12/07/2015 72284 Measure Blood Oxygen Level Single Determination Completed 08/15/2015 48474 Measure Blood Oxygen Level Single Determination Completed 08/15/2015 74732 X-Ray Chest Two Views Frontal & Lateral Completed 05/16/2015 [id number] Mammogram Completed 08/16/2014 46647 Old Bone Density Study (Dexa) Completed 08/16/2014 [id number] Bone Mineral Density Test Completed 08/16/2014 88181 Bone Density Study (Dexa) Axial Skeleton Completed (Hips,Pelvis,Spine) 02/23/2014 78966 Mammography Unilateral Completed 04/26/2013 43744 Measure Blood Oxygen Level Single Determination Completed 12/24/2012 34102 Colonoscopy Flexible Diagnostic Completed 09/21/2012 79776 Mammography Unilateral Completed 09/20/2012 72587 Mammography Unilateral Completed 09/15/2012 44251 Excise Benign Lesion .6-1CM Completed Scalp/Neck/Hands/Feet/Genitalia 09/15/2012 61057 Excise Benign Lesion <.6CM Completed Scalp/Neck/Hands/Feet/Genitalia 09/15/2012 90471 Excise Benign Lesion <.6CM Trunk/Arm/Leg Completed 09/15/2012 11563 Shave Skin Lesion .6-1CM Trunk/Arm/Leg Completed 09/10/2012 04111 Mammography Unilateral Completed Encounters Type Date Location Provider Dx Diagnosis Office Visit 04/05/2018 [facility] Jaqueline Claire MD G47.30 Sleep apnea, 4:00p unspecified E78.2 Mixed hyperlipidemia E53.8 Deficiency of other specified B group vitamins K91.2 Postsurgical malabsorption, not elsewhere classified I10 Essential (primary) hypertension F33.0 Major depressive disorder, recurrent, mild E89.0 Postprocedural hypothyroidism E11.9 Type 2 diabetes mellitus without complications G47.00 Insomnia, unspecified E66.9 Obesity, unspecified Z68.41 Body mass index (BMI) 40.0-44.9, adult Office Visit 12/15/2017 3:00p [facility] Jaqueline Claire MD G47.30 Sleep apnea, unspecified E78.2 Mixed hyperlipidemia E53.8 Deficiency of other specified B group vitamins K91.2 Postsurgical malabsorption, not elsewhere classified I10 Essential (primary) hypertension F33.0 Major depressive disorder, recurrent, mild E89.0 Postprocedural hypothyroidism E11.9 Type 2 diabetes mellitus without complications G47.00 Insomnia, unspecified R25.1 Tremor, unspecified Z68.41 Body mass index (BMI) 40.0-44.9, adult Office Visit 08/31/2017 4:00p [facility] Jaqueline Claire MD G47.30 Sleep apnea, unspecified E78.2 Mixed hyperlipidemia E53.8 Deficiency of other specified B group vitamins K91.2 Postsurgical malabsorption, not elsewhere classified I10 Essential (primary) hypertension F33.0 Major depressive disorder, recurrent, mild E89.0 Postprocedural hypothyroidism E11.9 Type 2 diabetes mellitus without complications K57.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 perforation or abscess w/o bleeding Z13.89 Encounter for screening for other disorder G47.00 Insomnia, unspecified Z68.41 Body mass index (BMI) 40.0-44.9, adult Office Visit 08/18/2017 2:30p [facility] Jaqueline Claire MD K57.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 perforation or abscess w/o bleeding D64.9 Anemia, unspecified E87.6 Hypokalemia M25.562 Pain in LEFT knee Office Visit 07/06/2017 9:00a [facility] Jaqueline Claire MD Z23 Encounter for immunization Z01.818 Encounter for other preprocedural examination M17.12 Unilateral primary osteoarthritis, LEFT knee E11.9 Type 2 diabetes mellitus without complications E89.0 Postprocedural hypothyroidism F33.0 Major depressive disorder, recurrent, mild I10 Essential (primary) hypertension K91.2 Postsurgical malabsorption, not elsewhere classified E53.8 Deficiency of other specified B group vitamins E78.2 Mixed hyperlipidemia G47.30 Sleep apnea, unspecified Office Visit 06/02/2017 1:00p [facility] Jaqueline Claire MD F33.0 Major depressive disorder, recurrent, mild E11.9 Type 2 diabetes mellitus without complications G47.30 Sleep apnea, unspecified E78.2 Mixed hyperlipidemia E53.8 Deficiency of other specified B group vitamins K91.2 Postsurgical malabsorption, not elsewhere classified I10 Essential (primary) hypertension E89.0 Postprocedural hypothyroidism Z12.31 Encntr screen mammogram for malignant neoplasm of breast Office Visit 04/15/2017 1:15p [facility] Krystal Dyer PA R05 Cough Office Visit 04/11/2017 10:30a [facility] Jaqueline Claire MD J18.9 Pneumonia, unspecified organism Office Visit 03/06/2017 4:00p [facility] Jaqueline Claire MD F33.0 Major depressive disorder, recurrent, mild Office Visit 02/25/2017 9:45a [facility] Jaqueline Claire MD F33.0 Major depressive disorder, recurrent, mild R00.2 Palpitations Office Visit 02/13/2017 4:00p [facility] Jaqueline Claire MD G47.30 Sleep apnea, unspecified E78.2 Mixed hyperlipidemia E53.8 Deficiency of other specified B group vitamins K91.2 Postsurgical malabsorption, not elsewhere classified I10 Essential (primary) hypertension F33.0 Major depressive disorder, recurrent, mild E89.0 Postprocedural hypothyroidism E11.9 Type 2 diabetes mellitus without complications G47.00 Insomnia, unspecified Office Visit 02/03/2017 1:00p [facility] Felecia Pan, 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, 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 Office Visit 11/13/2016 3:30p [facility] Jaqueline Claire MD G47.30 Sleep apnea, unspecified E78.2 Mixed hyperlipidemia E53.8 Deficiency of other specified B group vitamins K91.2 Postsurgical malabsorption, not elsewhere classified I10 Essential (primary) hypertension F33.0 Major depressive disorder, recurrent, mild E89.0 Postprocedural hypothyroidism E11.9 Type 2 diabetes mellitus without complications Office Visit 08/05/2016 3:00p [facility] Jaqueline Claire MD F33.0 Major depressive disorder, recurrent, mild G47.30 Sleep apnea, unspecified E78.2 Mixed hyperlipidemia E53.8 Deficiency of other specified B group vitamins K91.2 Postsurgical malabsorption, not elsewhere classified I10 Essential (primary) hypertension E89.0 Postprocedural hypothyroidism E11.9 Type 2 diabetes mellitus without complications Z11.59 Encounter for screening for other viral diseases Office Visit 05/06/2016 4:00p [facility] Jaqueline Claire MD E11.9 Type 2 diabetes mellitus without complications E89.0 Postprocedural hypothyroidism F33.0 Major depressive disorder, recurrent, mild I10 Essential (primary) hypertension K91.2 Postsurgical malabsorption, not elsewhere classified E53.8 Deficiency of other specified B group vitamins E78.2 Mixed hyperlipidemia G47.30 Sleep apnea, unspecified Z68.41 Body mass index (BMI) 40.0-44.9, adult Z86.010 Personal history of colonic polyps R21 Rash and other nonspecific skin eruption Office Visit 02/05/2016 4:15p [facility] Jaqueline Claire MD E11.9 Type 2 diabetes mellitus without complications E89.0 Postprocedural hypothyroidism F33.0 Major depressive disorder, recurrent, mild I10 Essential (primary) hypertension K91.2 Postsurgical malabsorption, not elsewhere classified E53.8 Deficiency of other specified B group vitamins E78.2 Mixed hyperlipidemia G47.30 Sleep apnea, unspecified Office Visit 12/07/2015 3:45p [facility] Jaqueline Claire MD R60.9 Edema, unspecified M79.651 Pain in RIGHT thigh M12.9 Arthropathy, unspecified Office Visit 11/05/2015 3:00p [facility] Jaqueline Claire MD G47.30 Sleep apnea, unspecified E78.2 Mixed hyperlipidemia E53.8 Deficiency of other specified B group vitamins K91.2 Postsurgical malabsorption, not elsewhere classified I10 Essential (primary) hypertension F33.0 Major depressive disorder, recurrent, mild E89.0 Postprocedural hypothyroidism E11.9 Type 2 diabetes mellitus without complications M12.9 Arthropathy, unspecified Office Visit 08/15/2015 11:15a [facility] Jaqueline Claire MD J18.9 Pneumonia, unspecified organism Office Visit 08/02/2015 4:00p [facility] Jaqueline Claire MD G47.30 Sleep apnea, unspecified E78.2 Mixed hyperlipidemia E53.8 Deficiency of other specified B group vitamins K91.2 Postsurgical malabsorption, not elsewhere classified I10 Essential (primary) hypertension F33.0 Major depressive disorder, recurrent, mild E89.0 Postprocedural hypothyroidism E11.9 Type 2 diabetes mellitus without complications R74.8 Abnormal levels of other serum enzymes R70.0 Elevated erythrocyte sedimentation rate Office Visit 07/26/2015 4:00p [facility] Jaqueline Claire MD F33.0 Major depressive disorder, recurrent, mild M12.9 Arthropathy, unspecified F51.02 Adjustment insomnia Office Visit 04/20/2015 3:30p [facility] Jaqueline Claire MD G47.30 Sleep apnea, unspecified E78.2 Mixed hyperlipidemia E53.8 Deficiency of other specified B group vitamins D53.9 Nutritional anemia, unspecified K91.2 Postsurgical malabsorption, not elsewhere classified I10 Essential (primary) hypertension F33.0 Major depressive disorder, recurrent, mild E89.0 Postprocedural hypothyroidism E11.9 Type 2 diabetes mellitus without complications Z12.31 Encntr screen mammogram for malignant neoplasm of breast H10.10 Acute atopic conjunctivitis, unspecified eye Office Visit 01/26/2015 4:00p [facility] Jaqueline Claire MD 780.57 Apnea, Unspecified Sleep Apnea 272.2 Hyperlipidemia Mixed 266.2 B Complex Deficiencies Other 281.9 Anemia Deficiency Unspec 579.3 Postsurgical Nonabsorption Other Unspec 401.1 Hypertension Benign 250.00 Diabetes Mellitus W/O Compl Type II Or Unspec Controlled 296.31 Depressive Disorder Major Recurrent Mild 244.0 Hypothyroidism Postsurgical Office Visit 10/24/2014 3:30p [facility] Jaqueline Claire MD 780.57 Apnea, Unspecified Sleep Apnea 272.2 Hyperlipidemia Mixed 281.9 Anemia Deficiency Unspec 579.3 Postsurgical Nonabsorption Other Unspec 401.1 Hypertension Benign 296.31 Depressive Disorder Major Recurrent Mild 244.0 Hypothyroidism Postsurgical 250.00 Diabetes Mellitus W/O Compl Type II Or Unspec Controlled Office Visit 08/01/2014 8:00a [facility] Jaqueline Claire MD 780.57 Apnea, Unspecified Sleep Apnea 272.2 Hyperlipidemia Mixed 266.2 B Complex Deficiencies Other 281.9 Anemia Deficiency Unspec 579.3 Postsurgical Nonabsorption Other Unspec 401.1 Hypertension Benign 296.31 Depressive Disorder Major Recurrent Mild 244.0 Hypothyroidism Postsurgical 250.00 Diabetes Mellitus W/O Compl Type II Or Unspec Controlled 278.00 Obesity Unspec Plan of Treatment Future Appointment(s):10/04/2018 9:10 am - Schedule, Laboratory at [facility]2018 4:15 pm - Jaqueline Claire MD at [facility]07/06/2018 - Jaqueline Claire MDF33.0 Major depressive disorder, recurrent, mildComments:doing well on current medication - phq9=0Follow up:3 mo routine follow with fasting labs aajqrL28.9 Type 2 diabetes mellitus without complicationsNew Medication:Metformin HCL 1000 mg - take one tablet by mouth twice a dayNew Labs:Basic (BMP), Scheduled: Hemoglobin A1c, Scheduled: 10/04/18Comments:much worse and not at goal. recommend no more than 1 serving of fruit daily - please consult the MYPLATE website. increase metformin to 2000 mg daily. offered referral to business office manager. recommend limiting carbs to 120 gm daily.G47.30 Sleep apnea, unspecifiedComments :uses cpap and sleeps well with this.E78.2 Mixed hyperlipidemiaNew Labs:Lipid Treatment, Scheduled: 10/04/18Comments:doing well on current medication - continue this. on statin - liver enzymes are normal. continue current medication to minimize cardiovascular riskE53.8 Deficiency of other specified B group vitaminsNew Labs:Vitamin B12, Scheduled: 10/04/18Comments:continue [id number] Postsurgical malabsorption, not elsewhere classifiedNew Labs: Vit D 25Oh, Scheduled: 10/04/18Comments:follow labsI10 Essential (primary) hypertensionNew Labs:TSH, Scheduled: 10/04/18Comments:at goal on current medication - continue this. However, optimum control is blood pressure of less than 120/80. do not add salt to your food. encourage regular exercise and healthy diet to improve blood pressure.E89.0 Postprocedural hypothyroidismComments:therapeutic - continue current dose.G47.00 Insomnia, unspecifiedComments:uses ambien about 3 times weekly -I would like her to minimize use of this medication -recommend shetry Cognitive Behavior Therapy - this is the most effective treatment for insomnia. It can be done with a therapist or for some people they can do this at home with the help of a workbook. Recommend searching your favorite bookstore for "cognitive behavior therapy for insomnia" and do the exercises in the book. refill today - [place] [employer] checked and in compliance. Reference #: [id number] Encounter for screening for depressionComments:screening for depression is negative PHQ-2= 0E66.9 Obesity, unspecifiedComments:counseled about strategies for weight loss and the impact of weight on chronic medical problems.Work on healthy lifestyle , with regular exercise (20 min daily will help) and eat a healthy diet. formal diet plans work best. Counseled about how to plan his meals to meet his goal - 1/2 of the plate is low carb vegies, 1/4 of the plate is lean meat - this is the size of the palm of your hand.1/4 of the plate is starch - this includes potatoes, pasta, rice, bread, corn, peas, and carrots.please consult the ADA web site for further information about the "MY PLATE DIET"R25.1 Tremor, unspecifiedNew Labs:Ceruloplasmin -RL, Scheduled: 10/04/18Copper Serum, Scheduled: 10/04/18Comments:has been evaluated by neurology - Dr Montenegro feels this is benign - recommends checking copper level and ceruloplasmin.Z68.39 Body mass index (BMI) 39.0-39.9, adultComments:The BMI is the ratio of height to weight. Weight loss is desirable. your goal BMI is between 18.9 and 25. Your are overweight. work on improving your diet to help with weight loss.
[2018-07-17 10:31] VITALS: BP 140/64
--- NOTE | 2018-07-17 11:11 | UC ---
Skin Complaint HPI - HPI Summary HPI Summary: PT presents with c/o red, irritated moderate swelling of skin around eyes. Pt is concerned that she got prescription ointment for skin on skin around eyes. - History of Current Complaint Chief Complaint: UCEye Time Seen by Provider: 07/17/18 10:58 Stated Complaint: EYE IRRITATION Hx Obtained From: Patient Hx Last Menstrual Period: 2004 ?: No Onset/Duration: Gradual Onset, Lasting Days, Still Present Timing: Constant Onset Severity: Mild Current Severity: Mild Pain Intensity: 0 Location: Discrete, Face Character: Swelling, Redness, Raised Aggravating Factor(s): Nothing Alleviating Factor(s): Unknown Associated Signs & Symptoms: Positive: Rash Related History: Other: - possible reaction to topical medication - Allergy/Home Medications Allergies/Adverse Reactions: Allergies Allergy/AdvReac Type Severity Reaction Status Date / Time codeine Allergy Vomiting Uncoded 07/17/18 10:22 PMH/Surg Hx/FS Hx/Imm Hx - Additional Past Medical History Additional PMH: hidradenitis suppurativa Previously Healthy: Yes Endocrine History: Diabetes Cardiovascular History: Cardiac Disease, Hypertension - Surgical History Surgical History: Yes Surgery Procedure, Year, and Place: HYSTERECTOMY, GALLBLADDER, THYROIDECTOMY 2011, GASTRIC BYPASS 2000 - Family History Known Family History: Positive: Unknown - Social History Lives: With Family Alcohol Use: None Alcohol Amount: 1 wine Substance Use Type: None Smoking Status (MU): Never Smoked Tobacco Have You Smoked in the Last Year: No - Immunization History Most Recent Influenza Vaccination: Fall 2013 Most Recent Pneumonia Vaccination: none Review of Systems All Other Systems Reviewed And Are Negative: Yes Constitutional: Positive: Negative Skin: Positive: Rash Eyes: Positive: Negative ENT: Positive: Negative Respiratory: Positive: Negative Cardiovascular: Positive: Negative Gastrointestinal: Positive: Negative Genitourinary: Positive: Negative Motor: Positive: Negative Neurovascular: Positive: Negative Musculoskeletal: Positive: Negative Neurological: Positive: Negative Psychological: Positive: Negative Is Patient Immunocompromised?: No Physical Exam Triage Information Reviewed: Yes Appearance: Pain Distress Vital Signs: Initial Vital Signs Temp 97.3 F 07/17/18 10:22 Pulse 68 07/17/18 10:22 Resp 16 07/17/18 10:22 BP 140/64 07/17/18 10:22 Pulse Ox 100 07/17/18 10:22 Vital Signs Reviewed: Yes Eye Exam: Normal Eyes: Positive: Other: - dry, erythematous mild swelling of skin around eyes ENT Exam: Normal Neck exam: Normal Respiratory Exam: Normal Respiratory: Positive: No respiratory distress Musculoskeletal Exam: Normal Neurological Exam: Normal Psychological Exam: Normal Skin Exam: Other - mild erythematous, dry flaking skin mild swelling around eyes. Pt reports that applied H2 O2 to skin around eyes last night Course/Dx - Differential Diagnoses - Skin Complaint Differential Diagnoses: Contact Dermatitis, Urticaria - Diagnoses Provider Diagnosis: Contact dermatitis Discharge - Sign-Out/Discharge Documenting (check all that apply): Patient Departure All imaging exams completed and their final reports reviewed: No Studies - Discharge Plan Condition: Stable Disposition: HOME Prescriptions: predniSONE [Prednisone 20 MG TAB] 20 mg PO DAILY #4 tablet Patient Education Materials: Antihistamine (By mouth), Contact Dermatitis (ED) Referrals: [facility] [Outside] - If Needed Jaqueline Claire MD [Primary Care Provider] - Additional Instructions: Please do not put anything on your skin except for unscented lotion to prevent dry and cracking skin. Please take a once a day OTC antihistamine and follow up with your PCP as soon as possible. - Billing Disposition and Condition Condition: STABLE Disposition: Home
== END 2018-07-17 11:19 | disposition home or self-care (01) ==
LOC: UCCORT 09:43
DX: L25.9 Unspecified contact dermatitis, unspecified cause (principal); E11.9 Type 2 diabetes mellitus without complications; I10 Essential (primary) hypertension; Z88.5 Allergy status to narcotic agent
CPT/HCPCS: 99212; G0463